=== PATIENT | male | born 1955 | race Asian ===

== ENCOUNTER 2025-02-07 16:07 | Inpatient (IN) | payer MEDICAID, OTHER ==
[~2025-02-07] VITALS: Ht 152.4 cm; Wt 48.2 kg
--- NOTE | 2025-02-07 16:37 | ED.PDOC ---
History of Present Illness HPI Comments 69-year-old male brought by paramedics because of abdominal pain which started yesterday. Abdominal pain is within nausea but no vomiting. He is also complaining of constipation. Patient does have a history of hypertension hypercholesterol prostate. Denies any other symptoms. Time Seen by MD: 16:08 Reviewed Notes: Nurses Notes, Medications, Allergies Allergies: Coded Allergies: NO KNOWN ALLERGIES (Unverified , 02/07/25) Information Source: Patient, Emergency Med Personnel Mode of Arrival: EMS Severity: Moderate Timing: Days Duration: Since onset Past Medical History PAST MEDICAL HISTORY: HTN Surgical History: Denies all surgeries Social History Smoker: Non-Smoker Alcohol: Denies ETOH Use Drugs: Denies Drug Use Constitutional: denies: chills, diaphoresis, fatigue, fever, malaise, sweats, weakness, others EENTM: denies: blurred vision, double vision, ear bleeding, ear discharge, ear drainage, ear pain, ear ringing, eye pain, eye redness, hearing loss, mouth pain, mouth swelling, nasal discharge, nose bleeding, nose congestion, nose pain, photophobia, tearing, throat pain, throat swelling, voice changes, others Respiratory: denies: cough, hemoptysis, orthopnea, SOB at rest, shortness of breath, SOB with excertion, stridor, wheezing, others Cardiovascular: denies: chest pain, dizzy spells, diaphoresis, Dyspnea on exertion, edema, irregular heart beat, left arm pain, lightheadedness, palpitations, PND, syncope, others Gastrointestinal: reports: abdominal pain, constipated; denies: abdomen distended, blood streaked bowels, diarrhea, dysphagia, difficulty swallowing, hematemesis, melena, nausea, poor appetite, poor fluid intake, rectal bleeding, rectal pain, vomiting, others Genitourinary: denies: burning, dysuria, flank pain, frequency, hematuria, incontinence, penile discharge, penile sore, pain, testicle pain, testicle swel ling, urgency, others Neurological: denies: dizziness, fainting, headache, left sided numbness, left sided weakness, numbness, paresthesia, pre-existing deficit, right sided numbness, right sided weakness, seizure, speech problems, tingling, tremors, weakness, others Musculoskeletal: denies: back pain, gout, joint pain, joint swelling, muscle pain, muscle stiffness, neck pain, others Integumetry: denies: bruises, change in color, change in hair/nails, dryness, laceration, lesions, lumps, rash, wounds, others Allergic/Immunocompromised: denies: Difficulty Healing, Frequent Infections, Hives, Itching, others Hematologic/Lymphatic: denies: anemia, blood clots, easy bleeding, easy bruising, swollen glands, others Endocrine: denies: excessive hunger, excessive sweating, excessive thirst, excessive urination, flushing, intolerance to cold, intolerance to heat, unexplained weight gain, unexplained weight loss, others Psychiatric: denies: anxiety, bipolar disorder, depression, hopeless, panic disorder, schizophrenia, sleepless, suicidal, others Physical Exam General Appearance: Moderate Distress HEENT: Normal ENT Inspection, Pharynx Normal, TMs Normal Neck: Full Range of Motion, Non-Tender, Normal, Normal Inspection Respiratory: Chest Non-Tender, Lungs Clear, No Accessory Muscle Use, No Respiratory Distress, Normal Breath Sounds Cardiovascular: No Edema, No JVD, No Murmur, No Gallop, Normal Peripheral Pulses, Regular Rate/Rhythm Breast Exam: Deferred Gastrointestinal: Distended Genitalia: Deferred Pelvic: Deferred Rectal: Deferred Extremities: No calf tenderness, Normal capillary refill, Normal inspection, Normal range of motion, Non-tender, No pedal edema Musculoskeletal : Apperance: Normal Neurologic: Alert, chief port director II-XII nml as Tested, No Motor Deficits, Normal Affect, Normal Mood, No Sensory Deficits Cerebellar Function: NOT DONE Reflexes: NOT DONE Skin: Dry, Normal Color, Warm Peripheral Pulses: 3+ Radial (R), 3+ Radial (L) Lymphatic: No Adenopathy Was a procedure done? Was a procedure done?: No Differential Dx Considerations may include: Colitis Electrolyte imbalance X-Ray, Labs, Meds, VS Vital Signs Date Time Temp Pulse Resp B/P (MAP) Pulse Ox O2 Delivery O2 Flow Rate FiO2 02/07/25 16:35 96.4 81 16 116/65 97 96.4 Lab Test 02/07/25 16:33 Range/Units White Blood Count 6.6 4.4-10.8 10^3/uL Red Blood Count 3.39 L 4.5-5.90 10^6/uL Hemoglobin 11.3 L 13.5-17.5 g/dL Hematocrit 32.8 L 41.0-53.0 % Mean Corpuscular Volume 97.0 80.0-100.0 fL Mean Corpuscular Hemoglobin 33.2 H 28.0-32.0 pg Mean Corpuscular Hemoglobin Concent 34.3 32.0-36.0 g/dL Red Cell Distribution Width 17.0 H 11.8-14.3 % Platelet Count 95 L 140-450 10^3/uL Mean Platelet Volume 9.2 6.9-10.8 fL Neutrophils (%) (Auto) 67.9 37.0-80.0 % Lymphocytes (%) (Auto) 16.0 10.0-50.0 % Monocytes (%) (Auto) 13.1 H 0.0-12.0 % Eosinophils (%) (Auto) 2.8 0.0-7.0 % Basophils (%) (Auto) 0.2 0.0-2.0 % Neutrophils # (Auto) 4.5 1.6-8.6 10 ^3/uL Lymphocytes # (Auto) 1.1 0.4-5.4 10 ^3/uL Monocytes # (Auto) 0.9 0-1.3 10 ^3/uL Eosinophils # (Auto) 0.2 0-0.8 10 ^3/uL Basophils # (Auto) 0 0-0.2 10 ^3/uL Nucleated Red Blood Cells 0.0 % Platelet Estimate Pending Sodium Level 138 136-145 mmol/L Potassium Level 4.1 3.5-5.1 mmol/L Chloride Level 106 98-107 mmol/L Carbon Dioxide Level 23 20-31 mmol/L Anion Gap 9 5-15 Blood Urea Nitrogen 26 H 9-23 mg/dL Creatinine 1.73 H 0.700-1.30 mg/dL Glomerular Filtration Rate Calc 42 >90 mL/min BUN/Creatinine Ratio 15.0 10.0-20.0 Serum Glucose 112 H 74-106 mg/dL Calcium Level 8.6 L 8.7-10.4 mg/dL Patient alert. Complaining of abdominal distention. Vitals stable. Answering questions. Establish intravenous access. Was given fluids. Explained to the family. Continue monitoring. Time of 1ST Reevaluation: 16:35 Reevaluation 1ST: Unchanged Patient Education/Counseling: Diagnosis, Treatment, Prognosis Family Education/Counseling: No Family Present SEPSIS Sepsis Screen Physician Orders Ct Ab Pel Wo Con-No Oral Or Iv (02/07/25 16:18) Complete Blood Count (02/07/25 16:08) Chest Portable (02/07/25 16:18) Urinalysis (02/07/25 16:08) Rbc Morphology (02/07/25 16:33) Vital Signs Date Time Temp Pulse Resp B/P (MAP) Pulse Ox O2 Delivery O2 Flow Rate FiO2 02/07/25 16:35 96.4 81 16 116/65 97 96.4 Laboratory Tests Test 02/07/25 16:33 White Blood Count 6.6 10^3/uL (4.4-10.8) Departure 1 Departure Time of Disposition: 16:36 Impression: Primary Impression: Acute abdominal pain Additional Impressions: Cirrhosis of liver Qualified Codes: K74.60 - Unspecified cirrhosis of liver; R18.8 - Other ascites Gallstones Disposition: ADMITTED INPATIENT Admit to: Med Surg Condition: Guarded Critical Care Note Critical Care Time?: No Stability Stability form required: No Heart Score Heart Score: Heart Score Response (Comments) Value History N/A 0 EKG N/A 0 Age N/A 0 Risk Factors N/A 0 Troponin N/A 0 Total 0 MERLE QUEEN MD Feb 07, 2025 16:37
[2025-02-07 16:58] LABS: Hematocrit 32.8 % (41.0-53.0); Hemoglobin 11.3 g/dL (13.5-17.5); Mean Corpuscular Hemoglobin 33.2 pg (28.0-32.0); Mean Corpuscular Volume 97.0 fL (80.0-100.0); Nucleated Red Blood Cells % 0.0 %
--- NOTE | 2025-02-07 17:07 | DVH ---
CHEST RADIOGRAPH Indication: sob Technique: XY CHEST PORTABLE COMPARISON: None FINDINGS: The cardiac silhouette is enlarged. The lungs demonstrate bilateral patchy airspace opacities. The pu lmonary vasculature is prominent. There is no pleural effusion. There is no pneumothorax. Aortic athe rosclerotic disease. IMPRESSION: Cardiomegaly with pulmonary vascular congestion and bilateral patchy airspace opacities.
[2025-02-07 17:09] LABS: Chloride 106 mmol/L (98-107); Potassium 4.1 mmol/L (3.5-5.1); Sodium 138 mmol/L (136-145)
[2025-02-07 17:10] LABS: Anion Gap 9 (5-15); Carbon Dioxide 23 mmol/L (20-31)
[2025-02-07 17:15] LABS: BUN/Creatinine Ratio 15.0 (10.0-20.0)
[2025-02-07 17:17] LABS: Blood Urea Nitrogen 26 mg/dL (9-23); Calcium 8.6 mg/dL (8.7-10.4); Glucose 112 mg/dL (74-106)
--- NOTE | 2025-02-07 17:26 | DVH ---
Indication: distended Technique: CT axial images of the abdomen and pelvis are obtained without contrast. Coronal and sagit basilia reformats were obtained. Radiation Dose Information: CTDI volume is 5.1 mGy. Dose-length product is 280 mGy*cm Comparison: FINDINGS: There is limited interpretation of the abdomen and pelvis without administration of intravenous contr ast. Lung bases demonstrate atelectasis. Adrenal glands unremarkable in shape. The spleen measures 11 cm AP. Pancreas unremarkable in shape. Cirrhotic morphology appearance of the liver. Possible large left hepatic lobe measuring 14.9 x 9.0 c m Cholelithiasis. Contracted gallbladder. Kidneys demonstrate no hydronephrosis or nephrolithiasis. Right renal cysts measuring up to 3.1 cm. Stomach partially distended. Small bowel loops are moderately distended. Moderate volume stool throughout the colon. No evidence for acute appendicitis. Abdominal aortic atherosclerotic disease. Bladder partially distended. Mesenteric edema. Small amount of ascites fluid. No inguinal lymphadenopathy. Moderate lumbar degenerative disc disease most pronounced at L5-S1. IMPRESSION: Limited evaluation without contrast. Cirrhotic morphology liver. Possible diffusely infiltrative left hepatic lobe mass measuring 14.9 x 9.0 cm. Recommend multiphasic MRI abdomen with and without contrast and correlation with alpha fetop rotein levels. Small amount of ascites fluid. Mesenteric edema. Cholelithiasis. Atherosclerotic disease. Other findings as described.
[2025-02-07 18:12] LABS: RBC Morphology Normal
[2025-02-08] MEDS: LACTULOSE 20Gm/30ML SOLN PO ONE (03:15)
[2025-02-08 05:00] VITALS: BP 122/62; PULSE 74; RESP 20; TEMP 98; O2SAT 97
--- NOTE | 2025-02-08 06:27 | DVHHPRES ---
History of Present Illness Resident Creating Document: NICK OCHOA RESIDENT History of Present Illness History of Present Illness (HPI): Varghese Lewis is a 69-year-old [place] speaking male with past medical history of hepatitis-B, hypertension, dyslipidemia presented with complaints of abdominal pain, fever, shortness of breath since 1 day. He also complains of weakness and tiredness. he rates the pain 10 on 10 in intensity, sharp, to continue as with no radiation, aggravating on coughing and talking with no alleviating factors. Communicated with the patient using seat scooper machine. Past Medical History (PMH): Hepatitis-B, hypertension, dyslipidemia Past Surgical History (PSH): No past history of surgeries Family history (FH): No relevant family history EtOH: Stopped using alcohol 10 years back Smoking /Vapin pack year smoking history Recreational Drugs: Denies recreational drug use Residence: Lives with son Home Medications: Reconcile home medications, son will bring the list tomorrow Allergies: No known allergies PCP: Dr. Awan Specialist relevant to admission: Nonrelevant Review of Systems Review of Systems General: patient denies fever, fatigue, weaknes, sweating, any recent changes in appetite and weight HEENT: No headaches, visiual changes, hearing loss, tinnitus, nasal congestion and discharge, and sore throat. Cardiovascular: Denies chest pain, palpitations, dyspnea on exertion, orthopnea, or claudication. Respiratory: No cough, and wheezing. Gastrointestinal: Complains of abdominal pain Genitourinary: No dysuria, hematuria, discharge, frequency, urgency, nocturia, incontinence, and urinary retention. Endocrine: No heat or cold intolerance, polydipsia, polyuria, and polyphagia. Neurological: No dizziness, extremity weakness and numbness, tremors, gait disturbance, seizures, and memory impairment. Psychiatric: Denies depression, anxiety,or insomnia. Musculoskeletal: Denies neck pain, stiffness and swelling, back pain, muscle weakness, joint pain, stiffness, swelling, or limited range of motion. Skin: No rashes, itching, skin lesion, changes in hair, nail, skin texture and breast. Hematologic/Lymphatic: Denies easy bruising, bleeding tendencies, or lymph node enlargement. Allergies: Coded Allergies: NO KNOWN ALLERGIES (Unverified , 02/07/25) Exam Vital Signs Vital Signs Date Time Temp Pulse Resp B/P (MAP) Pulse Ox O2 Delivery O2 Flow Rate FiO2 02/07/25 16:35 96.4 81 16 116/65 97 96.4 Exam General Appearance: Alert, Oriented X3, Cooperative, No acute distress HEENT: Atraumatic, PERRLA, EOMI, Mucous membrane moist/pink Respiratory: Clear to auscultation, Normal air movement Cardiovascular: Regular rate, Normal S1, Normal S2, No murmurs, no chest wall tenderness Abdominal: Diffuse abdominal tenderness present Extremities: No clubbing, No cyanosis, No edema, Normal pulses, No tenderness/swelling Skin: No rashes, No breakdown, No significant lesion Neuro: Normal gait, Normal speech, Strength at 5/5 X4 ext, Normal tone, Sensation intact, Cranial nerves 3-12 NL, Reflexes 2+ Psych/Mental Status: Mental status NL, Mood NL Labs/Xrays Labs Test 02/07/25 16:33 Range/Units White Blood Count 6.6 4.4-10.8 10^3/uL Red Blood Count 3.39 L 4.5-5.90 10^6/uL Hemoglobin 11.3 L 13.5-17.5 g/dL Hematocrit 32.8 L 41.0-53.0 % Mean Corpuscular Volume 97.0 80.0-100.0 fL Mean Corpuscular Hemoglobin 33.2 H 28.0-32.0 pg Mean Corpuscular Hemoglobin Concent 34.3 32.0-36.0 g/dL Red Cell Distribution Width 17.0 H 11.8-14.3 % Platelet Count 95 L 140-450 10^3/uL Mean Platelet Volume 9.2 6.9-10.8 fL Neutrophils (%) (Auto) 67.9 37.0-80.0 % Lymphocytes (%) (Auto) 16.0 10.0-50.0 % Monocytes (%) (Auto) 13.1 H 0.0-12.0 % Eosinophils (%) (Auto) 2.8 0.0-7.0 % Basophils (%) (Auto) 0.2 0.0-2.0 % Neutrophils # (Auto) 4.5 1.6-8.6 10 ^3/uL Lymphocytes # (Auto) 1.1 0.4-5.4 10 ^3/uL Monocytes # (Auto) 0.9 0-1.3 10 ^3/uL Eosinophils # (Auto) 0.2 0-0.8 10 ^3/uL Basophils # (Auto) 0 0-0.2 10 ^3/uL Nucleated Red Blood Cells 0.0 % Platelet Estimate Decreased Large Platelets Few Red Blood Cell Morphology Normal Sodium Level 138 136-145 mmol/L Potassium Level 4.1 3.5-5.1 mmol/L Chloride Level 106 98-107 mmol/L Carbon Dioxide Level 23 20-31 mmol/L Anion Gap 9 5-15 Blood Urea Nitrogen 26 H 9-23 mg/dL Creatinine 1.73 H 0.700-1.30 mg/dL Glomerular Filtration Rate Calc 42 >90 mL/min BUN/Creatinine Ratio 15.0 10.0-20.0 Serum Glucose 112 H 74-106 mg/dL Calcium Level 8.6 L 8.7-10.4 mg/dL SEPSIS Sepsis Screen Date sepsis recognized/suspect: Feb 07, 2025 Time Sepsis recognized/suspect: 1624 Recent Procedure: No On Antibiotic Therapy: No Respiratory Rate >20: No Heart Rate >90: No Temp<36 C (96.8 F) or >38.3 C: No SBP <90 or MAP <65 mmHG: No New Acute Mental Status Change: No Is the patient on CPAP, BIPAP,: No Physician Orders Ct Ab Pel Wo Con-No Oral Or Iv (02/07/25 16:18) Chest Portable (02/07/25 16:18) Urinalysis (02/07/25 16:08) Admit (02/07/25 22:47) Allergies (02/07/25 22:47) Code Status (02/07/25 22:47) 2 Gm Sodium Diet (02/08/25 Breakfast) Ondansetron Hcl (Zofran) (02/07/25 23:00) Vital Signs Date Time Temp Pulse Resp B/P (MAP) Pulse Ox O2 Delivery O2 Flow Rate FiO2 02/07/25 16:35 96.4 81 16 116/65 97 96.4 Laboratory Tests Test 02/07/25 16:33 White Blood Count 6.6 10^3/uL (4.4-10.8) Medications Medications Dose Ordered Sig/Alpa Route Start Time Stop Time Status Last Admin Dose Admin Ceftriaxone Sodium 50 ml @ 100 mls/hr ONCE ONCE IV 02/07/25 17:45 02/07/25 18:14 DC 02/07/25 20:22 100 MLS/HR Metronidazole 100 ml @ 100 mls/hr ONCE ONCE IV 02/07/25 17:45 02/07/25 18:44 DC 02/07/25 20:27 100 MLS/HR Assessment/Plan Assessment/Plan Assessment and plan # 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 Barriers to discharge: Medical diagnosis and management in progress. Patient lives with family. Independent for ADL. PCP: Dr. Awan Specialist Relevant To Admission: Nonrelevant Communicated with the son directly and with the patient using seat scooper machine. Case discussed with Dr. Reynsoo. Code Status: Full Code. Complex patient care discussion needed. Spend total 39 minutes for bedside assessment, case discussion and management. Plan discussed with: Patient, Son My Orders Orders - NICK OCHOA RESIDENT Procedure Category Date Status Time Admit ADMIT 02/07/25 Verified 22:47 Allergies GLORIA 02/07/25 Verified 22:47 Code Status CODE 02/07/25 Verified 22:47 2 Gm Sodium Diet DIET 02/08/25 Verified Breakfast Ondansetron Hcl PHA 02/07/25 Verified (Zofran) 23:00 Date of Service: Feb 07, 2025 Billing Provider: MORALES REYNOSO MD Common Visit Codes: [id number] INP/OBS CARE (HIGH) Secondary Visit Codes: [id number] CARE PLAN 30 MINUTES NICK OCHOA RESIDENT Feb 07, 2025 22:49
--- NOTE | 2025-02-08 08:15 | DVH ---
INDICATION: ascites TECHNIQUE: Multiple real-time sonographic images of the abdomen were obtained. COMPARISON: None FINDINGS: Hepatic cirrhosis. Multiple echogenic masses concerning for HCC measuring up to 6 x 6 x 4. 7 cm. The gallbladder wall measures 0.9 cm and is thickened. Gallstones are present. Small volume ascites. Common bile duct measures 4 mm. The right kidney measures 10cm. No hydronephrosis. 3 cm right renal cyst . The pancreas is not well visualized due to obscuration from bowel gas. The visualized portions of the IVC and aorta are grossly unremarkable. IMPRESSION: Multiple hepatic masses are identified measuring up to 6 cm concerning for HCC. Small volume ascites.
[2025-02-08 08:19] LABS: Hematocrit 32.6 % (41.0-53.0); Hemoglobin 11.3 g/dL (13.5-17.5); Mean Corpuscular Hemoglobin 33.4 pg (28.0-32.0); Mean Corpuscular Volume 96.1 fL (80.0-100.0); Nucleated Red Blood Cells % 0.1 %
[2025-02-08 08:22] LABS: INR 1.09 (0.9-1.15); Partial Thromboplastin Time 38.4 SEC (24.5-34.5); Prothrombin Time 11.5 sec (9.3-11.8)
[2025-02-08 08:23] LABS: Anion Gap 11 (5-15); BUN/Creatinine Ratio 16.7 (10.0-20.0); Blood Urea Nitrogen 22 mg/dL (9-23); Chloride 106 mmol/L (98-107); Glucose 98 mg/dL (74-106); Potassium 4.4 mmol/L (3.5-5.1); Sodium 137 mmol/L (136-145); Total Protein 7.6 g/dL (5.7-8.2)
[2025-02-08 08:26] LABS: Alanine Aminotransferase 499 U/L (7-40); Albumin 3.2 g/dL (3.2-4.8); Alkaline Phosphatase 129 U/L (46-116); Bilirubin, Total 1.7 mg/dL (0.2-1.0); Calcium 8.6 mg/dL (8.7-10.4); Carbon Dioxide 20 mmol/L (20-31)
[2025-02-08] MEDS: LACTULOSE 20Gm/30ML SOLN PO SCH (09:58)
[2025-02-08 10:00] VITALS: BP 110/58; PULSE 74; RESP 17; TEMP 98.1; O2SAT 96
--- NOTE | 2025-02-08 11:33 | DVHPN2 ---
Subjective The patient is seen and examined at bedside. The patient complained of ascites and abdominal pain. Son at bedside. Reviewed: Care Plan, H&P, Medications, Previous Orders Changes from previous H/P or p: No Changes Objective Vitals Vital Signs Date Time Temp Pulse Resp B/P (MAP) Pulse Ox O2 Delivery O2 Flow Rate FiO2 02/08/25 10:00 98.1 74 17 110/58 (75) 96 98.1 02/08/25 03:05 Room Air General Appearance: Alert, Oriented X3, Cooperative, No acute distress HEENT: Atraumatic, PERRLA, EOMI Neck: Supple Cardiovascular: Regular rate, Normal S1, Normal S2, No murmurs, Gallops, Rubs Abdomen: Normal bowel sounds, Other (possible ascites) Neuro: Cranial nerves 3-12 NL Psych/Mental Status: Other Medications Current Medications Medications Dose Ordered Sig/Alpa Route Start Time Stop Time Status Last Admin Dose Admin Ondansetron HCl 4 mg Q4HP PRN IV 02/07/25 23:00 Acetaminophen 650 mg Q6HP PRN PO 02/07/25 23:00 Lactulose 30 ml BID PO 02/08/25 10:00 02/08/25 09:58 30 ML Laboratory Results Laboratory Tests 02/08/25 07:28 Chemistry Test 02/07/25 16:33 02/08/25 07:28 Calcium Level 8.6 mg/dL (8.7-10.4) L 8.6 mg/dL (8.7-10.4) L Albumin 3.2 g/dL (3.2-4.8) Total Protein 7.6 g/dL (5.7-8.2) Coagulation Test 02/08/25 07:28 Prothrombin Time 11.5 sec (9.3-11.8) Prothrombin Time INR 1.09 (0.9-1.15) Activated Partial Thromboplast Time 38.4 SEC (24.5-34.5) H LFT Test 02/08/25 07:28 Alanine Aminotransferase (ALT) 499 U/L (7-40) H Alkaline Phosphatase 129 U/L (46-116) H Aspartate Amino Transferase (AST) 321 U/L (13-40) H Total Bilirubin 1.7 mg/dL (0.2-1.0) H Labs and/or images reviewed: Labs reviewed by me Assessment/Plan Assessment/Plan Assessment and plan # 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 Discussed with the patient and son regarding to the mass in the liver. I will wait for GI specialist input. We will biopsy the lesion. This medical document was created using an electronic medical record system with [employer] computerized dictation system. Although this document has been carefully reviewed, there may still be some phonetic and typographical errors. These areas are purely typographical due to imperfections of the software programs, and do not reflect any compromise in the patient's medical care. Plan discussed with: Patient, Son Date of Service: Feb 08, 2025 Billing Provider: ALIZE OROZCO MD Common Visit Codes: [id number] INP/OBS CARE(HIGH) ALIZE OROZCO MD Feb 08, 2025 11:33
[2025-02-08 12:46] VITALS: BP 110/55; PULSE 78; RESP 16; TEMP 98; O2SAT 96
[2025-02-08 17:00] VITALS: BP 111/75; PULSE 77; RESP 17; TEMP 98.6; O2SAT 97
[2025-02-08 17:36] LABS: COVID19 ANTIGEN SOFIA FIA NEGATIVE (NEGATIVE)
[2025-02-08 21:00] VITALS: BP 116/68; PULSE 75; RESP 16; TEMP 99.1; O2SAT 96
[2025-02-08] MEDS: ACETAMINOPHEN 325 MG TAB PO PRN (21:35)
[2025-02-09] VITALS (8 sets, daily range): BP systolic 102–134; BP diastolic 60–76; PULSE 62–76; RESP 16–18; TEMP 97.5–99.5; O2SAT 94–98
[2025-02-09 06:28] LABS: Hematocrit 32.5 % (41.0-53.0); Hemoglobin 11.3 g/dL (13.5-17.5); Mean Corpuscular Hemoglobin 33.5 pg (28.0-32.0); Mean Corpuscular Volume 96.7 fL (80.0-100.0); Nucleated Red Blood Cells % 0.2 %
[2025-02-09 06:29] LABS: Anion Gap 11 (5-15); Carbon Dioxide 21 mmol/L (20-31); Potassium 4.2 mmol/L (3.5-5.1); Sodium 140 mmol/L (136-145)
[2025-02-09 06:30] LABS: Calcium 8.7 mg/dL (8.7-10.4); Chloride 108 mmol/L (98-107)
[2025-02-09 06:35] LABS: BUN/Creatinine Ratio 17.5 (10.0-20.0); Blood Urea Nitrogen 21 mg/dL (9-23); Glucose 90 mg/dL (74-106)
[2025-02-09] MEDS: ONDANSETRON HCL 4 MG/2 ML VIAL IV PRN (15:16)
--- NOTE | 2025-02-09 23:36 | DVHPN2 ---
Subjective The patient is seen and examined at bedside. The patient complained of ascites and abdominal pain. Reviewed: Care Plan, H&P, Medications, Previous Orders Changes from previous H/P or p: No Changes Objective Vitals Vital Signs Date Time Temp Pulse Resp B/P (MAP) Pulse Ox O2 Delivery O2 Flow Rate FiO2 02/09/25 21:00 98.0 73 16 108/61 (77) 95 98.0 02/09/25 08:00 Room Air* 0 99 21 Intake/Output Intake and Output 02/09/25 07:00 Intake Total 640 ml Balance 640 ml Intake Oral 640 ml # Voids 2 General Appearance: Alert, Oriented X3, Cooperative, No acute distress HEENT: Atraumatic, PERRLA, EOMI Neck: Supple Cardiovascular: Regular rate, Normal S1, Normal S2, No murmurs, Gallops, Rubs Abdomen: Normal bowel sounds, Other (possible ascites) Neuro: Cranial nerves 3-12 NL Psych/Mental Status: Other Medications Current Medications Medications Dose Ordered Sig/Alpa Route Start Time Stop Time Status Last Admin Dose Admin Ondansetron HCl 4 mg Q4HP PRN IV 02/07/25 23:00 02/09/25 15:16 4 MG Acetaminophen 650 mg Q6HP PRN PO 02/07/25 23:00 02/08/25 21:35 650 MG Lactulose 30 ml BID PO 02/08/25 10:00 02/09/25 21:47 30 ML Laboratory Results Laboratory Tests 02/09/25 05:44 Chemistry Test 02/09/25 05:44 Calcium Level 8.7 mg/dL (8.7-10.4) Labs and/or images reviewed: Labs reviewed by me Assessment/Plan Assessment/Plan Assessment and plan # 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 Waiting for GI specialist to see the patient. Will continue pain meds will Dw son check alpha feto protein. This medical document was created using an electronic medical record system with [employer] computerized dictation system. Although this document has been carefully reviewed, there may still be some phonetic and typographical errors. These areas are purely typographical due to imperfections of the software programs, and do not reflect any compromise in the patient's medical care. Plan discussed with: Patient My Orders Orders - ALIZE OROZCO MD Procedure Category Date Status Time Complete Blood Count LAB 02/10/25 Verified 05:00 Complete Blood Count LAB 02/11/25 Verified 05:00 Complete Blood Count LAB 02/12/25 Verified 05:00 Complete Blood Count LAB 02/13/25 Verified 05:00 Basic Metabolic Panel LAB 02/10/25 Verified 05:00 Basic Metabolic Panel LAB 02/11/25 Verified 05:00 Basic Metabolic Panel LAB 02/12/25 Verified 05:00 Basic Metabolic Panel LAB 02/13/25 Verified 05:00 * Gi Dvh Scheme Technician CONS 02/09/25 Transmitted 12:37 Afp Serum Tumor Marker LAB 02/09/25 In Process 12:38 Date of Service: Feb 09, 2025 Billing Provider: ALIZE OROZCO MD Common Visit Codes: [id number] INP/OBS CARE(HIGH) ALIZE OROZCO MD Feb 09, 2025 23:36
[2025-02-10] VITALS (7 sets, daily range): BP systolic 120–139; BP diastolic 70–79; PULSE 66–76; RESP 16–18; TEMP 97.6–97.8; O2SAT 94–98
[2025-02-10 06:36] LABS: Hematocrit 31.8 % (41.0-53.0); Hemoglobin 11.0 g/dL (13.5-17.5); Mean Corpuscular Hemoglobin 33.2 pg (28.0-32.0); Mean Corpuscular Volume 96.3 fL (80.0-100.0); Nucleated Red Blood Cells % 0.0 %
[2025-02-10 06:54] LABS: Anion Gap 11 (5-15); Chloride 106 mmol/L (98-107); Potassium 4.3 mmol/L (3.5-5.1); Sodium 136 mmol/L (136-145)
[2025-02-10 06:55] LABS: Calcium 8.9 mg/dL (8.7-10.4); Carbon Dioxide 19 mmol/L (20-31)
[2025-02-10 07:00] LABS: BUN/Creatinine Ratio 18.3 (10.0-20.0); Blood Urea Nitrogen 21 mg/dL (9-23); Glucose 86 mg/dL (74-106)
--- NOTE | 2025-02-10 12:16 | DVHPN2 ---
Subjective The patient is seen and examined at bedside. The patient complained of ascites and abdominal pain. Pain is not controlled. Reviewed: Care Plan, H&P, Medications, Previous Orders Changes from previous H/P or p: No Changes Objective Vitals Vital Signs Date Time Temp Pulse Resp B/P (MAP) Pulse Ox O2 Delivery O2 Flow Rate FiO2 02/10/25 08:30 97.8 74 17 120/72 (88) 96 97.8 02/10/25 08:00 Room Air* 0 99 21 Intake/Output Intake and Output 02/10/25 07:00 Intake Total 1360 ml Balance 1360 ml Intake Oral 1360 ml # Voids 3 General Appearance: Alert, Oriented X3, Cooperative, No acute distress HEENT: Atraumatic, PERRLA, EOMI Neck: Supple Cardiovascular: Regular rate, Normal S1, Normal S2, No murmurs, Gallops, Rubs Abdomen: Normal bowel sounds, Other (possible ascites) Neuro: Cranial nerves 3-12 NL Psych/Mental Status: Other Medications Current Medications Medications Dose Ordered Sig/Alpa Route Start Time Stop Time Status Last Admin Dose Admin Ondansetron HCl 4 mg Q4HP PRN IV 02/07/25 23:00 02/09/25 15:16 4 MG Acetaminophen 650 mg Q6HP PRN PO 02/07/25 23:00 02/10/25 10:25 650 MG Lactulose 30 ml BID PO 02/08/25 10:00 02/10/25 10:25 30 ML Morphine Sulfate 1 mg Q4HP PRN IV 02/10/25 12:15 UNV Acetaminophen/ Hydrocodone Bitart 1 tab Q4HPRN PRN PO 02/10/25 12:15 UNV Laboratory Results Laboratory Tests 02/10/25 05:37 Chemistry Test 02/10/25 05:37 Calcium Level 8.9 mg/dL (8.7-10.4) Labs and/or images reviewed: Labs reviewed by me Assessment/Plan Assessment/Plan Assessment and plan # 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 Waiting for GI specialist to see the patient. Will continue pain meds tonny feto protein level is elevated. Will possible need biopsy. Waiting for GI input. This medical document was created using an electronic medical record system with [employer] computerized dictation system. Although this document has been carefully reviewed, there may still be some phonetic and typographical errors. These areas are purely typographical due to imperfections of the software programs, and do not reflect any compromise in the patient's medical care. Plan discussed with: Patient My Orders Orders - ALIZE OROZCO MD Procedure Category Date Status Time * Gi D[facility] [employer] Specialist CONS 02/09/25 Transmitted 12:37 Morphine Sulfate PHA 02/10/25 Logged Injection 12:15 Hydrocodone-Acet PHA 02/10/25 Logged 5/325mg Tab (Grants 12:15 Date of Service: Feb 10, 2025 Billing Provider: ALIZE OROZCO MD Common Visit Codes: [id number] INP/OBS CARE(HIGH) ALIZE OROZCO MD Feb 10, 2025 12:16
[2025-02-10] MEDS: HYDROcodone-ACET 5/325MG TAB PO PRN (14:01)
[2025-02-11 05:00] VITALS: BP 109/65; PULSE 64; RESP 16; TEMP 97.8; O2SAT 95
[2025-02-11 08:00] VITALS: RESP 18
[2025-02-11 08:10] LABS: Hematocrit 32.6 % (41.0-53.0); Hemoglobin 11.2 g/dL (13.5-17.5); Mean Corpuscular Hemoglobin 32.9 pg (28.0-32.0); Mean Corpuscular Volume 96.3 fL (80.0-100.0); Nucleated Red Blood Cells % 0.1 %
[2025-02-11 08:21] LABS: Anion Gap 10 (5-15); Carbon Dioxide 20 mmol/L (20-31); Chloride 106 mmol/L (98-107); Potassium 4.6 mmol/L (3.5-5.1); Sodium 136 mmol/L (136-145)
[2025-02-11 08:22] LABS: Calcium 8.8 mg/dL (8.7-10.4)
[2025-02-11 08:27] LABS: BUN/Creatinine Ratio 20.0 (10.0-20.0); Blood Urea Nitrogen 21 mg/dL (9-23); Glucose 80 mg/dL (74-106)
[2025-02-11 09:00] VITALS: BP 127/72; PULSE 63; RESP 20; TEMP 97; O2SAT 98
[2025-02-11 13:00] VITALS: BP 121/86; PULSE 78; RESP 18; TEMP 98.1; O2SAT 95
--- NOTE | 2025-02-11 15:00 | DVHPN2 ---
Subjective The patient is seen and examined at bedside. The patient complained of ascites and abdominal pain. Pain is not controlled. Reviewed: Care Plan, H&P, Medications, Previous Orders Changes from previous H/P or p: No Changes Objective Vitals Vital Signs Date Time Temp Pulse Resp B/P (MAP) Pulse Ox O2 Delivery O2 Flow Rate FiO2 02/11/25 13:00 98.1 78 18 121/86 (98) 95 98.1 02/11/25 08:00 Room Air* 0 99 21 Intake/Output Intake and Output 02/11/25 07:00 Intake Total 1320 ml Balance 1320 ml Intake Oral 1320 ml # Voids 6 General Appearance: Alert, Oriented X3, Cooperative, No acute distress HEENT: Atraumatic, PERRLA, EOMI Neck: Supple Cardiovascular: Regular rate, Normal S1, Normal S2, No murmurs, Gallops, Rubs Abdomen: Normal bowel sounds, Other (possible ascites) Neuro: Cranial nerves 3-12 NL Psych/Mental Status: Other Medications Current Medications Medications Dose Ordered Sig/Alpa Route Start Time Stop Time Status Last Admin Dose Admin Ondansetron HCl 4 mg Q4HP PRN IV 02/07/25 23:00 02/09/25 15:16 4 MG Acetaminophen 650 mg Q6HP PRN PO 02/07/25 23:00 02/10/25 10:25 650 MG Lactulose 30 ml BID PO 02/08/25 10:00 02/11/25 11:36 30 ML Morphine Sulfate 1 mg Q4HP PRN IV 02/10/25 12:15 Acetaminophen/ Hydrocodone Bitart 1 tab Q4HPRN PRN PO 02/10/25 12:15 02/11/25 11:36 1 TAB Laboratory Results Laboratory Tests 02/11/25 07:04 Chemistry Test 02/11/25 07:04 Calcium Level 8.8 mg/dL (8.7-10.4) Assessment/Plan Assessment/Plan Assessment and plan # 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 Waiting for GI specialist to see the patient. Will continue pain meds tonny feto protein level is elevated. Still waiting for GI specialist to see patient. WIll order IR to biopsy liver lesion This medical document was created using an electronic medical record system with [employer] computerized dictation system. Although this document has been carefully reviewed, there may still be some phonetic and typographical errors. These areas are purely typographical due to imperfections of the software programs, and do not reflect any compromise in the patient's medical care. Plan discussed with: Patient Date of Service: Feb 11, 2025 Billing Provider: ALIZE OROZCO MD Common Visit Codes: [id number] INP/OBS CARE(HIGH) ALIZE OROZCO MD Feb 11, 2025 15:00
[2025-02-11 17:00] VITALS: BP 111/63; PULSE 61; RESP 20; TEMP 97.8; O2SAT 96
[2025-02-11 21:00] VITALS: BP 114/64; PULSE 67; RESP 18; TEMP 97.7; O2SAT 95
[2025-02-12 01:00] VITALS: BP 122/68; PULSE 65; RESP 18; TEMP 97.4; O2SAT 96
[2025-02-12 05:00] VITALS: BP 105/60; PULSE 59; RESP 18; TEMP 97.7; O2SAT 96
[2025-02-12 06:44] LABS: Hematocrit 31.9 % (41.0-53.0); Hemoglobin 11.0 g/dL (13.5-17.5); Mean Corpuscular Hemoglobin 33.2 pg (28.0-32.0); Mean Corpuscular Volume 96.3 fL (80.0-100.0); Nucleated Red Blood Cells % 0.0 %
[2025-02-12 06:49] LABS: Chloride 105 mmol/L (98-107); Potassium 4.6 mmol/L (3.5-5.1); Sodium 136 mmol/L (136-145)
[2025-02-12 06:50] LABS: Anion Gap 11 (5-15); Calcium 9.0 mg/dL (8.7-10.4); Carbon Dioxide 20 mmol/L (20-31)
[2025-02-12 06:55] LABS: Glucose 89 mg/dL (74-106)
[2025-02-12 06:56] LABS: BUN/Creatinine Ratio 19.6 (10.0-20.0); Blood Urea Nitrogen 21 mg/dL (9-23)
[2025-02-12 09:00] VITALS: BP 124/54; PULSE 58; RESP 20; TEMP 97.2; O2SAT 94
--- NOTE | 2025-02-12 10:27 | DVHINCON2 ---
Date of service: Feb 12, 2025 Referring Physician Chanda Reason for Consultation Cirrhosis Liver mass History of Present Illness The patient is a 61-year-old male past medical history significant for hepatitis-B, hyperlipidemia, hypertension admitted with abdominal pain, found to have ascites, abdominal distention, and multiple liver masses on ultrasound and a liver mass on CT scan. MRI was recommended. Patient has mildly elevated alpha fetoprotein. GI consultation was obtained for evaluation. Past Medical History Past medical history as above Past Surgical History No prior GI surgeries Family History: Patient reports no known family medical history. Family History No gastrointestinal diseases or malignancies Social History Prior tobacco use No alcohol or recreational drug use Allergies: Coded Allergies: NO KNOWN ALLERGIES (Unverified , 02/07/25) Review of Systems 12 point review of systems as per HPI Vital Signs Vital Signs Date Time Temp Pulse Resp B/P (MAP) Pulse Ox O2 Delivery O2 Flow Rate FiO2 02/12/25 08:00 Room Air* 0 99 21 02/12/25 05:00 97.7 59 18 105/60 (75) 96 97.7 Physical Exam General: Cachectic appearing male HEENT: NC/AT EOMI PERRLA O/P clear, no JVD or cervical lymphadenopathy, no scleral icterus Heart: Regular rate and rhythm, no murmurs rubs or gallops Lungs: Clear to auscultation bilaterally, no wheezes rales or rhonchi Abdomen: Soft, distended, moderate tenderness to palpation Extremity: No clubbing cyanosis or edema, no rashes or bruises Neuro: Cranial nerves 2-12 grossly intact, moves all four extremities, no asterixis Labs/Diagnostic Data Labs Test 02/12/25 06:20 02/09/25 13:37 02/08/25 16:15 02/08/25 07:28 Range/Units White Blood Count 4.6 4.4-10.8 10^3/uL Red Blood Count 3.31 L 4.5-5.90 10^6/uL Hemoglobin 11.0 L 13.5-17.5 g/dL Hematocrit 31.9 L 41.0-53.0 % Mean Corpuscular Volume 96.3 80.0-100.0 fL Mean Corpuscular Hemoglobin 33.2 H 28.0-32.0 pg Mean Corpuscular Hemoglobin Concent 34.5 32.0-36.0 g/dL Red Cell Distribution Width 16.7 H 11.8-14.3 % Platelet Count 152 140-450 10^3/uL Mean Platelet Volume 9.1 6.9-10.8 fL Neutrophils (%) (Auto) 65.6 37.0-80.0 % Lymphocytes (%) (Auto) 20.3 10.0-50.0 % Monocytes (%) (Auto) 8.9 0.0-12.0 % Eosinophils (%) (Auto) 4.7 0.0-7.0 % Basophils (%) (Auto) 0.5 0.0-2.0 % Neutrophils # (Auto) 3.0 1.6-8.6 10 ^3/uL Lymphocytes # (Auto) 0.9 0.4-5.4 10 ^3/uL Monocytes # (Auto) 0.4 0-1.3 10 ^3/uL Eosinophils # (Auto) 0.2 0-0.8 10 ^3/uL Basophils # (Auto) 0 0-0.2 10 ^3/uL Nucleated Red Blood Cells 0.0 % Sodium Level 136 136-145 mmol/L Potassium Level 4.6 3.5-5.1 mmol/L Chloride Level 105 98-107 mmol/L Carbon Dioxide Level 20 20-31 mmol/L Anion Gap 11 5-15 Blood Urea Nitrogen 21 9-23 mg/dL Creatinine 1.07 0.700-1.30 mg/dL Glomerular Filtration Rate Calc 76 >90 mL/min BUN/Creatinine Ratio 19.6 10.0-20.0 Serum Glucose 89 74-106 mg/dL Calcium Level 9.0 8.7-10.4 mg/dL Tumor Marker Alpha Fetoprotein 15.4 H 0.0-8.4 ng/mL SARS-CoV-2 Antigen (Rapid) Negative NEGATIVE Prothrombin Time 11.5 9.3-11.8 sec Prothrombin Time INR 1.09 0.9-1.15 Activated Partial Thromboplast Time 38.4 H 24.5-34.5 SEC Total Bilirubin 1.7 H 0.2-1.0 mg/dL Aspartate Amino Transferase (AST) 321 H 13-40 U/L Alanine Aminotransferase (ALT) 499 H 7-40 U/L Alkaline Phosphatase 129 H 46-116 U/L Ammonia 20 11-32 umol/L Total Protein 7.6 5.7-8.2 g/dL Albumin 3.2 3.2-4.8 g/dL Carcinoembryonic Antigen 0.80 <=5.0 ng/mL Test 02/07/25 16:33 Range/Units Platelet Estimate Decreased Large Platelets Few Red Blood Cell Morphology Normal IMPRESSION: Limited evaluation without contrast. Cirrhotic morphology liver. Possible diffusely infiltrative left hepatic lobe mass measuring 14.9 x 9.0 cm. Recommend multiphasic MRI abdomen with and without contrast and correlation with alpha fetoprotein levels. Small amount of ascites fluid. Mesenteric edema. Cholelithiasis. Atherosclerotic disease. Assessment 1. Hepatitis-B, not sure if the patient is being treated or has been treated in the past given communication barrier. 2. Cirrhotic morphology of liver on imaging 3. Likely hepatocellular carcinoma 4. Mild ascites 5. Transaminitis 6. Abdominal pain 7. Cholelithiasis Problems(with codes): (1) Cirrhosis of liver (2) Gallstones (3) Acute abdominal pain Plan/Recommendation 1. We will check hepatitis-B DNA levels 2. Oncology consultation 3. Patient will need CT-guided biopsy of the liver masses 4. Pain control 5. Further workup as indicated 6. Surgical consultation for cholelithiasis, question common bile duct obstr uction, patient may need MRI/MRCP for evaluation for common bile duct stone and will need MRI with contrast for liver mass 7. I will be signing off and the GI team we will follow Plan discussed with: Patient WALTER DOSS MD Feb 12, 2025 10:27
--- NOTE | 2025-02-12 12:31 | DVHPN2 ---
Subjective The patient is seen and examined at bedside. The patient complained of ascites and abdominal pain. Pain is not controlled. Reviewed: Care Plan, H&P, Medications, Previous Orders Changes from previous H/P or p: No Changes Objective Vitals Vital Signs Date Time Temp Pulse Resp B/P (MAP) Pulse Ox O2 Delivery O2 Flow Rate FiO2 02/12/25 09:00 97.2 58 20 124/54 (77) 94 97.2 02/12/25 08:00 Room Air* 0 99 21 Intake/Output Intake and Output 02/12/25 07:00 Intake Total 1748 ml Output Total 3 ml Balance 1745 ml Intake Oral 1748 ml Output Urine Total 3 ml # Voids 3 General Appearance: Alert, Oriented X3, Cooperative, No acute distress HEENT: Atraumatic, PERRLA, EOMI Neck: Supple Cardiovascular: Regular rate, Normal S1, Normal S2, No murmurs, Gallops, Rubs Abdomen: Normal bowel sounds, Other (possible ascites) Neuro: Cranial nerves 3-12 NL Psych/Mental Status: Other Medications Current Medications Medications Dose Ordered Sig/Alpa Route Start Time Stop Time Status Last Admin Dose Admin Ondansetron HCl 4 mg Q4HP PRN IV 02/07/25 23:00 02/09/25 15:16 4 MG Acetaminophen 650 mg Q6HP PRN PO 02/07/25 23:00 02/10/25 10:25 650 MG Lactulose 30 ml BID PO 02/08/25 10:00 02/12/25 10:02 30 ML Morphine Sulfate 1 mg Q4HP PRN IV 02/10/25 12:15 Acetaminophen/ Hydrocodone Bitart 1 tab Q4HPRN PRN PO 02/10/25 12:15 02/12/25 06:35 1 TAB Laboratory Results Laboratory Tests 02/12/25 06:20 Chemistry Test 02/12/25 06:20 Calcium Level 9.0 mg/dL (8.7-10.4) Labs and/or images reviewed: Labs reviewed by me Assessment/Plan Assessment/Plan Assessment and plan # 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 Will continue pain meds tonny feto protein level is elevated. Still waiting for GI specialist to see patient. Waiting for interventional radiologists to biopsy the liver lesion. Discussed with Dr. Cochran, GI specialist on-call. Recommend follow up with Heme- Onc as outpatient This medical document was created using an electronic medical record system with [employer] computerized dictation system. Although this document has been carefully reviewed, there may still be some phonetic and typographical errors. These areas are purely typographical due to imperfections of the software programs, and do not reflect any compromise in the patient's medical care. Plan discussed with: Patient My Orders Orders - ALIZE OROZCO MD Procedure Category Date Status Time * Radiologist Consult CONS 02/11/25 Transmitted 15:00 Date of Service: Feb 13, 2025 Billing Provider: ALIZE OROZCO MD Common Visit Codes: [id number] INP/OBS CARE(HIGH) ALIZE OROZCO MD Feb 12, 2025 12:31
[2025-02-12 12:49] VITALS: BP 116/63; PULSE 61; RESP 20; TEMP 97.2; O2SAT 96
[2025-02-12 16:54] VITALS: BP 116/66; PULSE 70; RESP 20; TEMP 97.6; O2SAT 96
[2025-02-12 21:00] VITALS: BP 125/62; PULSE 70; RESP 20; TEMP 99.2; O2SAT 96
[2025-02-13] VITALS (7 sets, daily range): BP systolic 108–135; BP diastolic 51–70; PULSE 61–85; RESP 16–18; TEMP 97–98.5; O2SAT 94–98
[2025-02-13 07:08] LABS: Hematocrit 34.1 % (41.0-53.0); Hemoglobin 11.8 g/dL (13.5-17.5); Mean Corpuscular Hemoglobin 33.6 pg (28.0-32.0); Mean Corpuscular Volume 97.1 fL (80.0-100.0); Nucleated Red Blood Cells % 0.0 %
[2025-02-13 07:21] LABS: Anion Gap 10 (5-15); Carbon Dioxide 23 mmol/L (20-31); Chloride 106 mmol/L (98-107); Potassium 3.9 mmol/L (3.5-5.1); Sodium 139 mmol/L (136-145)
[2025-02-13 07:22] LABS: Calcium 9.2 mg/dL (8.7-10.4)
[2025-02-13 07:27] LABS: BUN/Creatinine Ratio 16.4 (10.0-20.0); Blood Urea Nitrogen 19 mg/dL (9-23); Glucose 86 mg/dL (74-106)
[2025-02-13] MEDS: IOHEXOL 300 MG/ML 100ML BOTTLE IJ ONE (14:30)
--- NOTE | 2025-02-13 14:35 | DVHPN2 ---
Progress Note Date Seen: Feb 13, 2025 Resident Creating Document: DALTON BIANCHI RESIDENT Medical Necessity Reason Pt with a Central, PICC or Fol: No Subjective Review of Systems Patient seen and examined at bedside Denies any nausea or vomiting Last bowel movement yesterday Scheduled to undergo CT abdomen with contrast today, imaging guided CT biopsy of the liver scheduled for tomorrow Objective vital signs Vital Sign Date Time Temp Pulse Resp B/P (MAP) Pulse Ox O2 Delivery O2 Flow Rate FiO2 02/13/25 12:56 98.5 75 18 114/65 (81) 94 98.5 02/13/25 08:00 Room Air* 0 21 Total Intake and Output 02/12/25 02/12/25 02/13/25 15:00 23:00 07:00 Intake Total 230 ml 600 ml 150 ml Output Total 2000 ml Balance 230 ml 600 ml -1850 ml medications Current Medications Medications Dose Ordered Sig/Alpa Route Start Time Stop Time Status Last Admin Dose Admin Ondansetron HCl 4 mg Q4HP PRN IV 02/07/25 23:00 02/09/25 15:16 4 MG Acetaminophen 650 mg Q6HP PRN PO 02/07/25 23:00 02/10/25 10:25 650 MG Lactulose 30 ml BID PO 02/08/25 10:00 02/12/25 21:16 30 ML Morphine Sulfate 1 mg Q4HP PRN IV 02/10/25 12:15 Acetaminophen/ Hydrocodone Bitart 1 tab Q4HPRN PRN PO 02/10/25 12:15 02/12/25 21:19 1 TAB Examination General Appearance: Alert, Oriented X3, Cooperative, No acute distress HEENT: Atraumatic, PERRLA, EOMI Neck: Supple Cardiovascular: Regular rate, Normal S1, Normal S2, No murmurs, Gallops, Rubs Abdomen: Normal bowel sounds, Other (possible ascites) Neuro: Cranial nerves 3-12 NL laboratory and microbiology Laboratory Tests 02/13/25 05:30 Test 02/13/25 05:30 Range/Units Serum Glucose 86 74-106 mg/dL Labs and/or images reviewed: Labs reviewed by me, Image(s) reviewed by me Problem List/Assessment/Plan Problem List/Assessment/Plan Left hepatic lobe mass 14.9 x 9 cm likely hepatocellular carcinoma Probable liver cirrhosis, decompensated Cholelithiasis History of hepatitis-B Mild ascites Transaminitis Plan: CT abdomen pelvis with IV contrast shows Diffuse infiltrative hypervascular masses within the left hepatic lobe measuring up to 14.2 cm as described above most consistent with diffusely infiltrative HCC. 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 Cholelithiasis. Atherosclerotic disease. Other findings as described Pending image guided liver biopsy Follow up with Oncology in the outpatient Pain management Patient may need MRI/MRCP for evaluation of CBD Thank you so much for the opportunity to consult on your patient. GI team will follow the patient. In case of any questions or concerns please feel free to reach out. Plan discussed with Dr. Rowell Plan discussed with: Other (RN) Dietary Evaluation Review Comments: Encourage and monitor PO intakes Expected Outcomes/Goals: gradual wt gain DALTON BIANCHI RESIDENT Feb 13, 2025 14:35
--- NOTE | 2025-02-13 16:11 | DVHPN2 ---
Subjective Yakut speaking; son helped with translation; continues to complain of abdominal pain Reviewed: Care Plan, H&P, Medications, Previous Orders, Radiology, Other (Consultations) Changes from previous H/P or p: No Changes Objective Vitals Vital Signs Date Time Temp Pulse Resp B/P (MAP) Pulse Ox O2 Delivery O2 Flow Rate FiO2 02/13/25 12:56 98.5 75 18 114/65 (81) 94 98.5 02/13/25 08:00 Room Air* 0 21 Intake/Output Intake and Output 02/13/25 07:00 Intake Total 980 ml Output Total 2000 ml Balance -1020 ml Intake Oral 980 ml Output Urine Total 2000 ml # Voids 6 General Appearance: Alert, Oriented X3, Cooperative, No acute distress HEENT: Atraumatic Neck: Supple Cardiovascular: Regular rate, Normal S1, Normal S2, No murmurs Abdomen: Normal bowel sounds, Soft, Other (Right upper quadrant tenderness) Extremities: No edema Neuro: Normal speech, Cranial nerves 3-12 NL Psych/Mental Status: Mental status NL, Mood NL Medications Current Medications Medications Dose Ordered Sig/Alpa Route Start Time Stop Time Status Last Admin Dose Admin Ondansetron HCl 4 mg Q4HP PRN IV 02/07/25 23:00 02/09/25 15:16 4 MG Acetaminophen 650 mg Q6HP PRN PO 02/07/25 23:00 02/10/25 10:25 650 MG Lactulose 30 ml BID PO 02/08/25 10:00 02/12/25 21:16 30 ML Morphine Sulfate 1 mg Q4HP PRN IV 02/10/25 12:15 Acetaminophen/ Hydrocodone Bitart 1 tab Q4HPRN PRN PO 02/10/25 12:15 02/12/25 21:19 1 TAB Laboratory Results Laboratory Tests 02/13/25 05:30 Chemistry Test 02/13/25 05:30 Calcium Level 9.2 mg/dL (8.7-10.4) Labs and/or images reviewed: Labs reviewed by me, Image(s) reviewed by me Assessment/Plan Assessment/Plan Covering: Right upper quadrant abdominal pain most likely due to suspected hepatocellular carcinoma with elevated AFP Suspected hepatocellular carcinoma; interventional radiologist ordered abdomen/pelvis CT with IV contrast before proceeding for biopsy tomorrow 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 LFTs Normocytic anemia; most likely inflammatory Essential hypertension Dyslipidemia Asymptomatic cholelithiasis History of hepatitis-B infection CEDRIC; most likely vasomotor nephro History of alcohol/tobacco use disorder; quit two years ago Mild ascites Reviewed lab work and available imaging studies including the results of abdomen/pelvis CT with IV contrast Continue pain management as indicated GI and interventional radiology are following No signs/symptoms of active bleeding Avoid hepatotoxic agents so no statin Avoid nephrotoxic agents; to monitoring kidney function after IV contrast To start antihypertensive medication if indicated Continue monitoring Goals of care discussed with the patient and his son for 20 minutes; full code Late Entry. This medical document was created using an electronic medical record system with computerized dictation system. Although this document has been carefully reviewed, there might still be some phonetic and typographical errors. These areas are purely typographical due to imperfections of the software programs, and do not reflect any compromise in the patient's medical care. Plan discussed with: Patient, Son, Other (Nurse) Date of Service: Feb 13, 2025 Billing Provider: GRAY MORGAN MD Common Visit Codes: [id number] INP/OBS CARE(HIGH) Secondary Visit Codes: [id number] CARE PLAN 30 MINUTES (20 minutes) GRAY MORGAN MD Feb 13, 2025 16:11
--- NOTE | 2025-02-13 16:43 | DVH ---
Indication: LIVER EVALUATION Technique: CT axial images of the abdomen are obtained with and without intravenous contrast. CT axia l images of the pelvis are also obtained on the delayed sequences. Coronal and sagittal reformats wer e obtained. Radiation Dose Information: CTDI volume is 7.81 mGy. Dose-length product is 841.16 mGy*cm Comparison: None FINDINGS: Lung bases demonstrate atelectasis. Adrenal glands unremarkable. Spleen enlarged measuring 13 cm craniocaudal. Pancreas unremarkable. Extensive hypervascular lesions within the left hepatic lobe that appear confluent measuring 14.2 x 9 .7 cm. There is enhancing tumor thrombus within the left and right portal veins, main portal vein. 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 Additional left hepatic lobe lesion measuring 3.4 x 3.8 c m. These lesions do demonstrate persistent enhancement on the delayed phases however are relatively h ypoenhancing relative to the hepatic in comparison to the arterial sequence. Some of the lesions do d emonstrate necrosis Cirrhotic morphology liver. Cholelithiasis. Esophageal, gastric, perisplenic varices. Small amount of ascites fluid. Stomach is partially distended. Small bowel loops are normal in caliber. Moderate volume stool in the colon. Abdominal aorta demonstrates atherosclerotic disease. Bladder distended. Small amount of free pelvic fluid. No inguinal lymphadenopathy. No acute osseous abnormality. Moderate thoracolumbar degenerative disc disease. 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 Cholelithiasis. Atherosclerotic disease. Other findings as described
[2025-02-14] VITALS (7 sets, daily range): BP systolic 108–138; BP diastolic 68–85; PULSE 57–73; RESP 16–17; TEMP 97.4–98.7; O2SAT 96–98
[2025-02-14 07:48] LABS: Hematocrit 32.4 % (41.0-53.0); Hemoglobin 11.2 g/dL (13.5-17.5); Mean Corpuscular Hemoglobin 33.4 pg (28.0-32.0); Mean Corpuscular Volume 96.4 fL (80.0-100.0); Nucleated Red Blood Cells % 0.1 %
[2025-02-14 08:52] LABS: Anion Gap 11 (5-15); Calcium 9.1 mg/dL (8.7-10.4); Carbon Dioxide 22 mmol/L (20-31); Chloride 105 mmol/L (98-107); Glucose 85 mg/dL (74-106); Potassium 4.4 mmol/L (3.5-5.1); Sodium 138 mmol/L (136-145)
[2025-02-14 08:53] LABS: Albumin 3.2 g/dL (3.2-4.8); BUN/Creatinine Ratio 16.2 (10.0-20.0); Blood Urea Nitrogen 17 mg/dL (9-23); Total Protein 7.7 g/dL (5.7-8.2)
[2025-02-14 08:54] LABS: Bilirubin, Total 0.9 mg/dL (0.2-1.0)
[2025-02-14 08:59] LABS: Alanine Aminotransferase 418 U/L (7-40); Alkaline Phosphatase 192 U/L (46-116)
[2025-02-14] MEDS: LIDOCAINE 2%HCL (LOCAL ANESTH.) INJ 10ml MDV ONE (09:51)
[2025-02-14] MEDS: GELATIN 1 SPONGE SIZE 50 TOP ONE (09:54)
[2025-02-14] MEDS: MIDAZOLAM HCL 2MG/2ML 2ml VIAL (1mg/ml) IV ONE (10:00)
[2025-02-14] MEDS: fentaNYL CITRATE 100 MCG/2 ML VL IV ONE (10:00)
--- NOTE | 2025-02-14 10:49 | DVHPN2 ---
Progress Note Date Seen: Feb 14, 2025 Resident Creating Document: DALTON BIANCHI RESIDENT Medical Necessity Reason Pt with a Central, PICC or Fol: No Subjective Review of Systems Patient seen and examined at bedside S/p liver biopsy Last BM 02/12/2025, on lactulose Discussed plan in detail with patient's son Mr. Lewis at [phone] Objective vital signs Vital Sign Date Time Temp Pulse Resp B/P (MAP) Pulse Ox O2 Delivery O2 Flow Rate FiO2 02/14/25 09:00 98.7 65 16 136/82 (100) 96 98.7 02/14/25 08:00 Room Air* 0 21 Total Intake and Output 02/13/25 02/13/25 02/14/25 15:00 23:00 07:00 Intake Total 0 ml 0 ml Balance 0 ml 0 ml medications Current Medications Medications Dose Ordered Sig/Alpa Route Start Time Stop Time Status Last Admin Dose Admin Ondansetron HCl 4 mg Q4HP PRN IV 02/07/25 23:00 02/09/25 15:16 4 MG Acetaminophen 650 mg Q6HP PRN PO 02/07/25 23:00 02/10/25 10:25 650 MG Lactulose 30 ml BID PO 02/08/25 10:00 02/13/25 21:54 30 ML Morphine Sulfate 1 mg Q4HP PRN IV 02/10/25 12:15 Acetaminophen/ Hydrocodone Bitart 1 tab Q4HPRN PRN PO 02/10/25 12:15 02/13/25 21:55 1 TAB Examination General Appearance: Alert, Oriented X3, Cooperative, No acute distress HEENT: Atraumatic, PERRLA, EOMI Neck: Supple Cardiovascular: Regular rate, Normal S1, Normal S2, No murmurs, Gallops, Rubs Abdomen: Normal bowel sounds, Other (possible ascites) Neuro: Cranial nerves 3-12 NL laboratory and microbiology Laboratory Tests 02/14/25 06:40 Test 02/14/25 06:40 Range/Units Serum Glucose 85 74-106 mg/dL Labs and/or images reviewed: Labs reviewed by me, Image(s) reviewed by me Problem List/Assessment/Plan Problem List/Assessment/Plan Left hepatic lobe mass 14.9 x 9 cm likely hepatocellular carcinoma Probable liver cirrhosis, decompensated Cholelithiasis History of hepatitis-B Mild ascites Transaminitis Plan: CT abdomen pelvis with IV contrast shows Diffuse infiltrative hypervascular masses within the left hepatic lobe measuring up to 14.2 cm as described above most consistent with diffusely infiltrative HCC. 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 Cholelithiasis. Atherosclerotic disease. Other findings as described s/p image guided liver biopsy Follow up with Oncology in the outpatient Pain management Patient may need MRI/MRCP for evaluation of CBD Awaiting biopsy results Thank you so much for the opportunity to consult on your patient. GI team will follow the patient. In case of any questions or concerns please feel free to reach out. Plan discussed with Dr. Rowell Plan discussed with: Son, Other (RN) Dietary Evaluation Review Comments: Encourage and monitor PO intakes Expected Outcomes/Goals: gradual wt gain DALTON BIANCHI RESIDENT Feb 14, 2025 10:48
--- NOTE | 2025-02-14 11:16 | DVH ---
US US GUIDANCE FOR NEEDLE PLACEME, HISTORY: LIVER BIOPSY PROCEDURE: Informed consent was obtained. The patient was placed supine on the CT scanner, and limite d US was performed of the liver. IV sedation was administered. The skin over the area of interest was prepped with chlorhexidine which was allowed to dry and draped in the usual sterile fashion. Time ou t was performed. 1% local lidocaine was administered. With intermittent US guidance, Temno 17 gauge o uter coaxial guiding needle was advanced into the mass and 2 biopsies were obtained using Temno 18 ga uge inner core biopsy needle. The specimens were placed in formalin and sent to pathology for analysi s. The needle was withdrawn , and the visceral tract embolized with gelfoam and 8 minutes of manual p ressure. Post procedural images were obtained. No immediate complication was identified. SEDATION: Dr. Radha Workman was personally responsible for the administration of moderate sedation during the procedure performed, including the use of an independent trained observer who had no other duties during the procedure. The drugs utilized were IV fentanyl and versed (see nursing log for details). The total time of supervision by the attending physician was approximately 30 minutes. FINDINGS: Echogenic left hepatic lobe liver mass. Intra-procedural images demonstrate biopsy needle w ithin the margin of targeted lesion. Post procedural images do not demonstrate any significant hemorr matthew. IMPRESSION: US guided left liver lobe mass biopsy. Pathology results pending.
--- NOTE | 2025-02-14 17:24 | DVHPN2 ---
Subjective Patient status post liver biopsy today for probable hepatocellular carcinoma. He is otherwise stable in bed. No complaints. Reviewed: Care Plan, H&P, Medications, Previous Orders, Radiology, Other (Consultations) Changes from previous H/P or p: No Changes Objective Vitals Vital Signs Date Time Temp Pulse Resp B/P (MAP) Pulse Ox O2 Delivery O2 Flow Rate FiO2 02/14/25 17:00 97.4 66 16 132/85 (101) 96 97.4 02/14/25 08:00 Room Air* 0 21 Intake/Output Intake and Output 02/14/25 07:00 Intake Total 0 ml Balance 0 ml Intake Oral 0 ml # Voids 6 General Appearance: Alert, Oriented X3, Cooperative, No acute distress HEENT: Atraumatic Neck: Supple Cardiovascular: Regular rate, Normal S1, Normal S2, No murmurs Abdomen: Normal bowel sounds, Soft, Other (Right upper quadrant tenderness) Extremities: No edema Neuro: Normal speech, Cranial nerves 3-12 NL Psych/Mental Status: Mental status NL, Mood NL Medications Current Medications Medications Dose Ordered Sig/Alpa Route Start Time Stop Time Status Last Admin Dose Admin Ondansetron HCl 4 mg Q4HP PRN IV 02/07/25 23:00 02/09/25 15:16 4 MG Acetaminophen 650 mg Q6HP PRN PO 02/07/25 23:00 02/10/25 10:25 650 MG Lactulose 30 ml BID PO 02/08/25 10:00 02/13/25 21:54 30 ML Morphine Sulfate 1 mg Q4HP PRN IV 02/10/25 12:15 Acetaminophen/ Hydrocodone Bitart 1 tab Q4HPRN PRN PO 02/10/25 12:15 02/13/25 21:55 1 TAB Laboratory Results Laboratory Tests 02/14/25 06:40 Chemistry Test 02/14/25 06:40 Albumin 3.2 g/dL (3.2-4.8) Calcium Level 9.1 mg/dL (8.7-10.4) Total Protein 7.7 g/dL (5.7-8.2) LFT Test 02/14/25 06:40 Alanine Aminotransferase (ALT) 418 U/L (7-40) H Alkaline Phosphatase 192 U/L (46-116) H Aspartate Amino Transferase (AST) 383 U/L (13-40) H Total Bilirubin 0.9 mg/dL (0.2-1.0) Assessment/Plan Assessment/Plan Right upper quadrant abdominal pain most likely due to suspected hepatocellular carcinoma with elevated AFP Suspected hepatocellular carcinoma; status post liver biopsy today 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 LFTs Normocytic anemia; most likely inflammatory Essential hypertension Dyslipidemia Asymptomatic cholelithiasis History of hepatitis-B infection CEDRIC; most likely vasomotor nephro History of alcohol/tobacco use disorder; quit two years ago Mild ascites Reviewed lab work and available imaging studies including the results of abdomen/pelvis CT with IV contrast Continue pain management as indicated GI and interventional radiology are following No signs/symptoms of active bleeding Avoid hepatotoxic agents so no statin Avoid nephrotoxic agents; to monitoring kidney function after IV contrast To start antihypertensive medication if indicated Continue current supportive care and treatment as he is on overnight. If he remains stable consider discharge home tomorrow with outpatient follow up for biopsy results and oncology referral as appropriate. Discussed with the patient's nurse/patient regarding care plan. Plan discussed with: Patient, Other My Orders Orders - GLEN MILLARD MD Procedure Category Date Status Time Follow Up In 1 Week ORDERS 02/14/25 Transmitted 17:13 Hepatic Panel LAB 02/15/25 Verified 06:00 Date of Service: Feb 14, 2025 Billing Provider: GLEN MILLARD MD Common Visit Codes: [id number] INP/OBS CARE(MOD) GLEN MILLARD MD Feb 14, 2025 17:24
[2025-02-15] VITALS (7 sets, daily range): BP systolic 105–132; BP diastolic 60–80; PULSE 62–82; RESP 16–20; TEMP 97.7–98.3; O2SAT 92–98
[2025-02-15 07:46] LABS: Bilirubin, Total 0.9 mg/dL (0.2-1.0); Total Protein 7.7 g/dL (5.7-8.2)
[2025-02-15 07:54] LABS: Alanine Aminotransferase 446.0 U/L (7-40); Albumin 3.2 g/dL (3.2-4.8); Alkaline Phosphatase 196.0 U/L (46-116)
[2025-02-15 08:04] LABS: Bilirubin, Direct 0.4 mg/dL (<0.3)
--- NOTE | 2025-02-15 16:40 | DVHPN2 ---
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 Tolerating diet, denies any nausea vomiting Does note some weakness Notes some right upper quadrant soreness Objective vital signs Vital Sign Date Time Temp Pulse Resp B/P (MAP) Pulse Ox O2 Delivery O2 Flow Rate FiO2 02/15/25 16:16 97.9 73 18 126/80 (95) 98 97.9 02/15/25 08:00 Room Air* 0 21 Total Intake and Output 02/14/25 02/14/25 02/15/25 14:59 22:59 06:59 Intake Total 120 ml 350 ml Balance 120 ml 350 ml medications Current Medications Medications Dose Ordered Sig/Alpa Route Start Time Stop Time Status Last Admin Dose Admin Ondansetron HCl 4 mg Q4HP PRN IV 02/07/25 23:00 02/09/25 15:16 4 MG Acetaminophen 650 mg Q6HP PRN PO 02/07/25 23:00 02/10/25 10:25 650 MG Lactulose 30 ml BID PO 02/08/25 10:00 02/15/25 10:01 30 ML Morphine Sulfate 1 mg Q4HP PRN IV 02/10/25 12:15 Acetaminophen/ Hydrocodone Bitart 1 tab Q4HPRN PRN PO 02/10/25 12:15 02/14/25 22:01 1 TAB Examination General Appearance: Alert, Oriented X3, Cooperative, No acute distress HEENT: Atraumatic, PERRLA, EOMI Neck: Supple Cardiovascular: Regular rate, Normal S1, Normal S2, No murmurs, Gallops, Rubs Abdomen: Normal bowel sounds, Other (possible ascites) Neuro: Cranial nerves 3-12 NL laboratory and microbiology Laboratory Tests 02/14/25 06:40 Test 02/14/25 06:40 Range/Units Serum Glucose 85 74-106 mg/dL Labs and/or images reviewed: Labs reviewed by me, Image(s) reviewed by me Problem List/Assessment/Plan Problem List/Assessment/Plan Left hepatic lobe mass 14.9 x 9 cm likely hepatocellular carcinoma Probable liver cirrhosis, decompensated Cholelithiasis History of hepatitis-B Mild ascites Transaminitis Plan: CT abdomen pelvis with IV contrast shows Diffuse infiltrative hypervascular masses within the left hepatic lobe measuring up to 14.2 cm as described above most consistent with diffusely infiltrative HCC. 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 Cholelithiasis. Atherosclerotic disease. 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 A voicemail was also left for patient's son at [phone]. Follow up appointment in the discharge clinic was also set up within 1 week. Thank you so much for the opportunity to consult on your patient. GI team will follow the patient. In case of any questions or concerns please feel free to reach out. Plan discussed with Dr. Rowell Plan discussed with: Patient, Son, Other (RN) Dietary Evaluation Review Comments: Encourage and monitor PO intakes Expected Outcomes/Goals: gradual wt gain DALTON BIANCHI RESIDENT Feb 15, 2025 16:40
[2025-02-16 01:04] VITALS: BP 122/64; PULSE 67; RESP 17; TEMP 97.9; O2SAT 97
[2025-02-16 05:41] VITALS: BP 128/62; PULSE 69; RESP 17; TEMP 97.8; O2SAT 99
[2025-02-16 08:00] VITALS: PULSE 82; RESP 20; O2SAT 95
[2025-02-16 08:59] VITALS: BP 125/57; PULSE 72; RESP 18; TEMP 97.9; O2SAT 95
[2025-02-16] MEDS: MORPHINE SULFATE INJ 2 MG/ml SYRG IV PRN (09:19)
[2025-02-16 10:00] VITALS: BP 130/80; PULSE 80; RESP 18
--- NOTE | 2025-02-16 10:36 | DVHPN2 ---
Subjective The patient is seen and examined at bedside. The patient complained of ascites and abdominal pain. Pain is not controlled. Reviewed: Care Plan, H&P, Medications, Previous Orders, Radiology, Other (Consultations) Objective Vitals Vital Signs Date Time Temp Pulse Resp B/P (MAP) Pulse Ox O2 Delivery O2 Flow Rate FiO2 02/16/25 09:19 70 18 130/60 02/16/25 08:59 97.9 95 97.9 02/15/25 20:00 Room Air* 0 21 Intake/Output Intake and Output 02/16/25 07:00 Intake Total 890 ml Output Total 550 ml Balance 340 ml Intake Oral 890 ml Output Urine Total 550 ml # Voids 2 General Appearance: Alert, Oriented X3, Cooperative, No acute distress HEENT: Atraumatic Neck: Supple Cardiovascular: Regular rate, Normal S1, Normal S2, No murmurs Abdomen: Normal bowel sounds, Soft, Other (Right upper quadrant tenderness) Extremities: No edema Neuro: Normal speech, Cranial nerves 3-12 NL Psych/Mental Status: Mental status NL, Mood NL Medications Current Medications Medications Dose Ordered Sig/Alpa Route Start Time Stop Time Status Last Admin Dose Admin Ondansetron HCl 4 mg Q4HP PRN IV 02/07/25 23:00 02/09/25 15:16 4 MG Acetaminophen 650 mg Q6HP PRN PO 02/07/25 23:00 02/10/25 10:25 650 MG Lactulose 30 ml BID PO 02/08/25 10:00 02/16/25 09:14 30 ML Morphine Sulfate 1 mg Q4HP PRN IV 02/10/25 12:15 02/16/25 09:19 1 MG Acetaminophen/ Hydrocodone Bitart 1 tab Q4HPRN PRN PO 02/10/25 12:15 02/14/25 22:01 1 TAB Laboratory Results Laboratory Tests 02/14/25 06:40 Assessment/Plan Assessment/Plan Assessment and plan # 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 Will continue pain meds tonny feto protein level is elevated. Still waiting for GI specialist to see patient. Waiting for interventional radiologists to biopsy the liver lesion. Discussed with Dr. Cochran, GI specialist on-call. Recommend follow up with Heme- Onc as outpatient This medical document was created using an electronic medical record system with [employer] direct computerized dictation system. Although this document has been carefully reviewed, there may still be some phonetic and typographical errors. These areas are purely typographical due to imperfections of the software programs, and do not reflect any compromise in the patient's medical care. ALIZE OROZCO MD Feb 16, 2025 10:36
[2025-02-16] MEDS ORDERED: HYDR-4902 PO (11:46)
--- NOTE | 2025-02-16 11:48 | DVHDS2 ---
Discharge Summary Date of Admission Feb 07, 2025 at 22:47 Date of Discharge: Feb 16, 2025 Admitting Diagnosis Right upper quadrant abdominal pain 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 LFTs Normocytic anemia Essential hypertension Dyslipidemia Asymptomatic cholelithiasis History of hepatitis-B infection CEDRIC; most likely vasomotor History of alcohol/tobacco use disorder; quit two years ago Mild ascites Labs/Diagnostic Data: Laboratory Results Test 02/15/25 06:42 02/14/25 06:40 02/09/25 13:37 02/08/25 16:15 Total Bilirubin 0.9 mg/dL (0.2-1.0) Direct Bilirubin 0.4 mg/dL (<0.3) Aspartate Amino Transferase (AST) 408 U/L (13-40) Alanine Aminotransferase (ALT) 446 U/L (7-40) Alkaline Phosphatase 196 U/L (46-116) Total Protein 7.7 g/dL (5.7-8.2) Albumin 3.2 g/dL (3.2-4.8) White Blood Count 4.6 10^3/uL (4.4-10.8) Red Blood Count 3.36 10^6/uL (4.5-5.90) Hemoglobin 11.2 g/dL (13.5-17.5) Hematocrit 32.4 % (41.0-53.0) Mean Corpuscular Volume 96.4 fL (80.0-100.0) Mean Corpuscular Hemoglobin 33.4 pg (28.0-32.0) Mean Corpuscular Hemoglobin Concent 34.6 g/dL (32.0-36.0) Red Cell Distribution Width 16.8 % (11.8-14.3) Platelet Count 161 10^3/uL (140-450) Mean Platelet Volume 8.7 fL (6.9-10.8) Neutrophils (%) (Auto) 61.6 % (37.0-80.0) Lymphocytes (%) (Auto) 22.2 % (10.0-50.0) Monocytes (%) (Auto) 10.5 % (0.0-12.0) Eosinophils (%) (Auto) 5.0 % (0.0-7.0) Basophils (%) (Auto) 0.7 % (0.0-2.0) Neutrophils # (Auto) 2.8 10 ^3/uL (1.6-8.6) Lymphocytes # (Auto) 1.0 10 ^3/uL (0.4-5.4) Monocytes # (Auto) 0.5 10 ^3/uL (0-1.3) Eosinophils # (Auto) 0.2 10 ^3/uL (0-0.8) Basophils # (Auto) 0 10 ^3/uL (0-0.2) Nucleated Red Blood Cells 0.1 % Sodium Level 138 mmol/L (136-145) Potassium Level 4.4 mmol/L (3.5-5.1) Chloride Level 105 mmol/L (98-107) Carbon Dioxide Level 22 mmol/L (20-31) Anion Gap 11 (5-15) Blood Urea Nitrogen 17 mg/dL (9-23) Creatinine 1.05 mg/dL (0.700-1.30) Glomerular Filtration Rate Calc 77 mL/min (>90) BUN/Creatinine Ratio 16.2 (10.0-20.0) Serum Glucose 85 mg/dL (74-106) Calcium Level 9.1 mg/dL (8.7-10.4) Tumor Marker Alpha Fetoprotein 15.4 ng/mL (0.0-8.4) SARS-CoV-2 Antigen (Rapid) Negative (NEGATIVE) Test 02/08/25 07:28 02/07/25 16:33 Prothrombin Time 11.5 sec (9.3-11.8) Prothrombin Time INR 1.09 (0.9-1.15) Activated Partial Thromboplast Time 38.4 SEC (24.5-34.5) Ammonia 20 umol/L (11-32) Carcinoembryonic Antigen 0.80 ng/mL (<=5.0) Platelet Estimate Decreased Large Platelets Few Red Blood Cell Morphology Normal Other Laboratory Tests 02/14/25 06:40 Brief Hx & Hospital Course: This is a 69 years old Welsh speaking male come into emergency department because severe abdominal pain. He has a history of hepatitis B positive. According to the patient he had been treated as outpatient. However he is a poor historian and I could not find any evidence of treatment for his hepatitis- B. He not on any antiviral medication. The patient continuing to have abdominal pain. He also complained of weakness and being tired. He stated his pain is 10/10 with intensity, sharp and continuing for the whole day. The patient could not eat and had lost appetite for about a month per son. He also had rapid weight loss about 30-40 lb per month. The patient was admitted. 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 Cholelithiasis. Atherosclerotic disease. Patient was given pain medication with Bandera for pain control. The patient has elevation of alpha-fetoprotein: 16.1. The patient subsequently has a liver biopsy done. GI specialist was consulted. Today the patient's abdominal pain improved. Patient is able to eat and keep food down. No nausea and vomiting. I am going to discharge him home. Discussed with son in length. I will call the patient when the biopsy results come back. Patient needs outpatient follow up with GI specialist. The patient needs outpatient workup from Oncology when pathology report available. Activity as tolerated. Diet per home diet. Follow up with primary care physician 1-2 weeks. Physical exam: HEENT: Normocephalic atraumatic pupils equal react to light and accommodation. Extraocular muscles intact, conjunctiva pink, oropharynx moist, no thrush, no exudate. Lymphatic: No lymphadenopathy Cardiovascular exam: S1, S2 was heard. No murmurs, rubs, gallops Lung: Clear on auscultation bilaterally, no wheeze, rale, rhonchi. GI: Abdominal soft, nondistended, nontenderness, positive bowel sounds. Extremity: No crepitus, cyanosis, edema. Pedal pulses present bilateral. Full range of motion. Skin: Normal turgor, no rash. Psych: Alert, oriented x3. Neurology: No focal deficits, cranial nerve II to XII grossly intact. This medical document was created using an electronic medical record system with [employer] direct computerized dictation system. Although this document has been carefully reviewed, there may still be some phonetic and typographical errors. These areas are purely typographical due to imperfections of the software programs, and do not reflect any compromise in the patient's medical care. Condition at Discharge: Stable Final Diagnosis/Problems List Right upper quadrant abdominal pain most likely due to suspected hepatocellular carcinoma with elevated AFP Suspected hepatocellular carcinoma; status post liver biopsy today 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 LFTs Normocytic anemia; most likely inflammatory Essential hypertension Dyslipidemia Asymptomatic cholelithiasis History of hepatitis-B infection CEDRIC; most likely vasomotor nephro History of alcohol/tobacco use disorder; quit two years ago Mild ascites Discharge Disposition: Home Discharge Instruct/Medications Diet: Consistent carbohydrate, Cardiac 2g Na,low cholest Activity: No Restrictions, As Tolerated Follow Up/Referral: PCP next week for liver biopsy results and referral to Cancer doctor Medications: home meds Scheduled PRN Hydrocodone-Acetaminophen (Hydrocodone Bitartrate/AC 5-325 mg), 1 TAB PO Q4HPRN PRN Discharge Statement: "Patient was advised to return to the ER or call 911 if any headaches, dizziness, shortness of breath, chest pain, abdominal pain, bleeding, fevers, or worsening of medical condition. Patient was counseled about treatment plan, medications, possible side effects, patientverbalized understanding. All questions were answered to the best of my ability. This discharge took greater then 30 minutes in planning, reviewing documentation, counseling the patient, and discussing with other team members." ASSESSMENT ASSESSMENT Assessment RIGHT UPPER QUDRANT ABDOMINAL PAIN MOST LIKELY DUE TO SUSPECTED HEPATOCELLULAR CARCINOMA WITH ELEVATED AFP ALCOHOLIC HEPATITIS B LIVER CIRRHOSIS Date of Service: Feb 16, 2025 Billing Provider: ALIZE OROZCO MD Common Visit Codes: [id number]/OBS DISCH DAY >30min ALIZE OROZCO MD Feb 16, 2025 11:48
== END 2025-02-16 11:42 | disposition home or self-care (01) | DRG 281 ==
LOC: EDBD 16:07 → ER 16:07 → OVERFLOW 22:47 → WEST WING 02-08 19:20
PROVIDERS: ADMIT Internal Medicine; ATTEND Internal Medicine
PROC: 0FB23ZX Excision of Left Lobe Liver, Percutaneous Approach, Diagnostic (ICD-10-PCS; principal; 2025-02-14)
DX: C22.0 Liver cell carcinoma (principal); N17.0 Acute kidney failure with tubular necrosis; D69.6 Thrombocytopenia, unspecified; K70.31 Alcoholic cirrhosis of liver with ascites; K70.11 Alcoholic hepatitis with ascites; I81 Portal vein thrombosis; B19.10 Unspecified viral hepatitis B without hepatic coma; I10 Essential (primary) hypertension; I86.4 Gastric varices; I85.10 Secondary esophageal varices without bleeding; D64.9 Anemia, unspecified; K80.20 Calculus of gallbladder without cholecystitis without obstruction; R16.1 Splenomegaly, not elsewhere classified; K59.00 Constipation, unspecified; E78.00 Pure hypercholesterolemia, unspecified; Z87.891 Personal history of nicotine dependence
CPT/HCPCS: 36415; 47000; 71045; 74176; 74178; 76705; 76942; 80048; 80053; 80076; 82105; 82140; 82378; 85025; 85610; 85730; 87426; 96365; G0378; J2003; J2250; J2405; J3490

== ENCOUNTER 2025-03-10 19:21 | Inpatient (IN) | payer MEDICAID ==
[~2025-03-10] VITALS: Ht 152.4 cm; Wt 46.6 kg
[~2025-03-10 19:21] MED LIST: HYDR-4902 PO
--- NOTE | 2025-03-10 19:43 | ED.PDOC ---
GI ASSESSMENT HPI Comments 69-year-old male who came to ER via EMS for abdominal pain. Patient was discharged here last February 16 and was diagnosed with 1. Right upper quadrant abdominal pain most likely due to suspected hepatocellular carcinoma with elevated AFP, 2. Suspected hepatocellular carcinoma; status post liver biopsy today, 3. 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LFTs, 4. Normocytic anemia; most likely inflammatory, 5. Essential hypertension, 6. Dyslipidemia, 7. Asymptomatic cholelithiasis , 8. History of hepatitis-B infection , 9. 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 History of alcohol/tobacco use disorder; quit two years ago, 12. Mild ascites. Patient has yet to see an oncologist regarding his issues. For the past few ice patient has been experiencing a right upper quadrant abdominal pain, progressively worsening prompting check up Chief Complaint: Abdominal Pain Time Seen by MD: 19:41 Reviewed Notes: Nurses Notes Allergies: Coded Allergies: NO KNOWN ALLERGIES (Unverified , 02/07/25) Home Meds Active Scripts Hydrocodone-Acetaminophen (Hydrocodone Bitartrate/AC 5-325 mg) 1 Tab Tab, 1 TAB PO Q4HPRN PRN, #30 TAB Prov:ALIZE OROZCO MD 02/16/25 Information Source: Patient, Emergency Med Personnel Mode of Arrival: EMS Timing: Days Duration: Since onset Prehospital treatment: None Recent: Other (Liver cancer) Past Medical History PAST MEDICAL HISTORY: Anemia, Cancer (Liver), Gallstones, High Lipids, HTN Surgical History: Denies all surgeries Social History Smoker: Non-Smoker Alcohol: Denies ETOH Use Drugs: Denies Drug Use Lives In: Home Constitutional: denies: chills, diaphoresis, fatigue, fever, malaise, sweats, weakness, others EENTM: denies: blurred vision, double vision, ear bleeding, ear discharge, ear drainage, ear pain, ear ringing, eye pain, eye redness, hearing loss, mouth pain, mouth swelling, nasal discharge, nose bleeding, nose congestion, nose pain, photophobia, tearing, throat pain, throat swelling, voice changes, others Respiratory: denies: cough, hemoptysis, orthopnea, SOB at rest, shortness of breath, SOB with excertion, stridor, wheezing, others Cardiovascular: denies: chest pain, dizzy spells, diaphoresis, Dyspnea on exertion, edema, irregular heart beat, left arm pain, lightheadedness, palpitations, PND, syncope, others Gastrointestinal: reports: abdominal pain; denies: abdomen distended, blood streaked bowels, constipated, diarrhea, dysphagia, difficulty swallowing, hematemesis, melena, nausea, poor appetite, poor fluid intake, rectal bleeding, rectal pain, vomiting, others Genitourinary: denies: burning, dysuria, flank pain, frequency, hematuria, incontinence, penile discharge, penile sore, pain, testicle pain, testicle swelling, urgency, others Neurological: denies: dizziness, fainting, headache, left sided numbness, left sided weakness, numbness, paresthesia, pre-existing deficit, right sided numbnes s, right sided weakness, seizure, speech problems, tingling, tremors, weakness, others Musculoskeletal: denies: back pain, gout, joint pain, joint swelling, muscle pain, muscle stiffness, neck pain, others Integumetry: denies: bruises, change in color, change in hair/nails, dryness, laceration, lesions, lumps, rash, wounds, others Allergic/Immunocompromised: denies: Difficulty Healing, Frequent Infections, Hives, Itching, others Hematologic/Lymphatic: denies: anemia, blood clots, easy bleeding, easy bruising, swollen glands, others Endocrine: denies: excessive hunger, excessive sweating, excessive thirst, excessive urination, flushing, intolerance to cold, intolerance to heat, unexplained weight gain, unexplained weight loss, others Psychiatric: denies: anxiety, bipolar disorder, depression, hopeless, panic disorder, schizophrenia, sleepless, suicidal, others Physical Exam General Appearance: No Apparent Distress, Normal HEENT: Normal ENT Inspection, Pharynx Normal, TMs Normal Neck: Full Range of Motion, Non-Tender, Normal, Normal Inspection Respiratory: Chest Non-Tender, Lungs Clear, No Accessory Muscle Use, No Respiratory Distress, Normal Breath Sounds Cardiovascular: No Edema, No JVD, No Murmur, No Gallop, Normal Peripheral Pulses, Regular Rate/Rhythm Breast Exam: Deferred Gastrointestinal: No Organomegaly, No Pulsatile Mass, Normal Bowel Sounds, RUQ, Soft, Tenderness Genitalia: Deferred Pelvic: Deferred Rectal: Deferred Extremities: No calf tenderness, Normal capillary refill, Normal inspection, Normal range of motion, Non-tender, No pedal edema Musculoskeletal : Apperance: Normal Neurologic: Alert, animal behaviorist II-XII nml as Tested, No Motor Deficits, Normal Affect, Normal Mood, No Sensory Deficits Cerebellar Function: Normal Reflexes: Normal Skin: Dry, Normal Color, Warm Lymphatic: No Adenopathy Was a procedure done? 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 Indication: Hypotension, Volume resuscitation, Suspected infection Room prepared for procedure: Yes Log Chipper Operator performed hand hygien: Yes Maximal sterile barrier precau: Mask/Eye shield, Sterile gown, Cap, Sterlie gloves, Large sterlie drape Skin Preparation: Providine iodine Skin preparation completely dr: Yes Central line catheter type: Tunneled- not dialysis Number of lumens: 3 Central line exchanged over a: Yes Antiseptic ointment applied to: Yes Post Assessment: Chest X-Ray Informed consent obtained: Yes Risks/benefits/alt described: Yes Intubation Indication: Respiratory Insufficiency, Altered Mental Status, Airway Protection Prep: Preoxygenation Pretreated with: Sedation Medicated with: Other (Etomidate, rocuronium) Intubation Approach: Orotracheal Intubation size: cm (7.5) Informed consent obtained: Yes Risks/benefits/alt described: Yes GI differential Dx Differential Diagnosis: Gastritis/PUD, Gastroenteritis, Hepatitis, Pancreatitis, Other (Liver cancer) X-Ray, Labs, Meds, VS Vital Signs Date Time Temp Pulse Resp B/P (MAP) Pulse Ox O2 Delivery O2 Flow Rate FiO2 03/10/25 22:25 75 03/10/25 21:41 75 18 145/115 03/10/25 19:33 97.6 60 16 81/47 95 97.6 03/10/25 19:21 61 Lab Test 03/10/25 22:14 03/10/25 20:14 Range/Units Lactic Acid Level 7.1 *H 5.4 *H 0.4-2.0 mmol/L White Blood Count 10.5 4.4-10.8 10^3/uL Red Blood Count 2.61 L 4.5-5.90 10^6/uL Hemoglobin 8.6 L 13.5-17.5 g/dL Hematocrit 25.7 L 41.0-53.0 % Mean Corpuscular Volume 98.3 80.0-100.0 fL Mean Corpuscular Hemoglobin 32.9 H 28.0-32.0 pg Mean Corpuscular Hemoglobin Concent 33.5 32.0-36.0 g/dL Red Cell Distribution Width 17.4 H 11.8-14.3 % Platelet Count 150 140-450 10^3/uL Mean Platelet Volume 9.5 6.9-10.8 fL Neutrophils (%) (Auto) 61.9 37.0-80.0 % Lymphocytes (%) (Auto) 27.9 10.0-50.0 % Monocytes (%) (Auto) 7.0 0.0-12.0 % Eosinophils (%) (Auto) 2.3 0.0-7.0 % Basophils (%) (Auto) 0.9 0.0-2.0 % Neutrophils # (Auto) 6.5 1.6-8.6 10 ^3/uL Lymphocytes # (Auto) 2.9 0.4-5.4 10 ^3/uL Monocytes # (Auto) 0.7 0-1.3 10 ^3/uL Eosinophils # (Auto) 0.2 0-0.8 10 ^3/uL Basophils # (Auto) 0.1 0-0.2 10 ^3/uL Nucleated Red Blood Cells 0.2 % Prothrombin Time Pending Prothrombin Time INR Pending Activated Partial Thromboplast Time Pending Sodium Level 142 136-145 mmol/L Potassium Level 3.7 3.5-5.1 mmol/L Chloride Level 108 H 98-107 mmol/L Carbon Dioxide Level 21 20-31 mmol/L Anion Gap 13 5-15 Blood Urea Nitrogen 24 H 9-23 mg/dL Creatinine 1.76 H 0.700-1.30 mg/dL Glomerular Filtration Rate Calc 42 >90 mL/min BUN/Creatinine Ratio 13.6 10.0-20.0 Serum Glucose 245 H 74-106 mg/dL Calcium Level 8.7 8.7-10.4 mg/dL Total Bilirubin 0.7 0.2-1.0 mg/dL Aspartate Amino Transferase (AST) 381 H 13-40 U/L Alanine Aminotransferase (ALT) 467 H 7-40 U/L Alkaline Phosphatase 178 H 46-116 U/L Total Protein 6.6 5.7-8.2 g/dL Albumin 2.8 L 3.2-4.8 g/dL Lipase 41 12-53 U/L Current Medications Medications (Trade) Dose Ordered Sig/Alpa Route Start Time Stop Time Status Last Admin Sodium Chloride 1,000 ml @ 1,000 mls/hr Q1H ONCE IVB 03/10/25 19:45 03/10/25 20:44 DC 03/10/25 20:37 Hydromorphone HCl (Dilaudid Injection) 0.5 mg ONCE ONCE IV 03/10/25 20:30 03/10/25 20:31 DC 03/10/25 21:41 Ondansetron HCl (Zofran) 4 mg ONCE ONCE IV 03/10/25 20:30 03/10/25 20:31 DC 03/10/25 21:41 Albumin Human 100 ml @ 100 mls/hr ONCE ONCE IV 03/10/25 21:15 03/10/25 22:14 DC 03/10/25 22:11 Sodium Chloride 1,000 ml @ 1,000 mls/hr Q1H ONCE IV 03/10/25 21:15 03/10/25 22:14 DC 03/10/25 21:35 Piperacillin Sod/ Tazobactam Sod 100 ml @ 100 mls/hr ONCE ONCE IV 03/10/25 22:00 03/10/25 22:59 DC 03/10/25 22:55 Metronidazole 100 ml @ 100 mls/hr ONCE ONCE IV 03/10/25 22:00 03/10/25 22:59 DC 03/10/25 22:18 Time of 1ST Reevaluation: 19:42 Reevaluation 1ST: Unchanged Patient Education/Counseling: Diagnosis, Treatment, Other (Patient speaks Czech) Family Education/Counseling: No Family Present SEPSIS Sepsis Screen Physician Orders Urinalysis (03/10/25 19:30) Ct Ab Pel Wo Con-No Oral Or Iv (03/10/25 19:37) Blood Culture (03/10/25 19:37) Norepinephrine 8 Mg/250ml Kit (Levophed) (03/10/25 23:45) Sodium Chloride 0.9% (03/10/25 23:45) Norepinephrine 8 Mg/250ml Kit (Levophed) (03/10/25 23:45) PTPTT (03/10/25 23:42) Type And Screen (03/10/25 23:42) Packedcells -Active Bleeding (03/10/25 23:42) Midazolam Drip 50 Mg/50ml (Versed Drip 5 (03/11/25 00:00) Rass Sedation Scale Q1HR (03/10/25 23:53) Communication Order (03/10/25 23:53) Vital Signs Date Time Temp Pulse Resp B/P (MAP) Pulse Ox O2 Delivery O2 Flow Rate FiO2 03/10/25 22:25 75 03/10/25 21:41 75 18 145/115 03/10/25 19:33 97.6 60 16 81/47 95 97.6 03/10/25 19:21 61 Laboratory Tests Test 03/10/25 20:14 03/10/25 22:14 Lactic Acid Level 5.4 mmol/L (0.4-2.0) *H 7.1 mmol/L (0.4-2.0) *H White Blood Count 10.5 10^3/uL (4.4-10.8) Medications Medications Dose Ordered Sig/Alpa Route Start Time Stop Time Status Last Admin Dose Admin Albumin Human 100 ml @ 100 mls/hr ONCE ONCE IV 03/10/25 21:15 03/10/25 22:14 DC 03/10/25 22:11 Hydromorphone HCl 0.5 mg ONCE ONCE IV 03/10/25 20:30 03/10/25 20:31 DC 03/10/25 21:41 Metronidazole 100 ml @ 100 mls/hr ONCE ONCE IV 03/10/25 22:00 03/10/25 22:59 DC 03/10/25 22:18 Ondansetron HCl 4 mg ONCE ONCE IV 03/10/25 20:30 03/10/25 20:31 DC 03/10/25 21:41 Piperacillin Sod/ Tazobactam Sod 100 ml @ 100 mls/hr ONCE ONCE IV 03/10/25 22:00 03/10/25 22:59 DC 03/10/25 22:55 Sodium Chloride 1,000 ml @ 1,000 mls/hr Q1H ONCE IV 03/10/25 21:15 03/10/25 22:14 DC 03/10/25 21:35 Sodium Chloride 1,000 ml @ 1,000 mls/hr Q1H ONCE IVB 03/10/25 19:45 03/10/25 20:44 DC 03/10/25 20:37 Departure 1 Departure Time of Disposition: 00:11 Impression: Primary Impression: Cirrhosis of liver Additional Impressions: Hemoperitoneum COPD (chronic obstructive pulmonary disease) Respiratory failure with hypoxia Hypotension Acute renal injury Disposition: ADMITTED INPATIENT Admit to: ICU Condition: Critical Comments 69 year old male recently admitted and diagnosed with some kind of liver cancer and history of COPD and cirrhosis now presents with abdominal pain and generalized weakness. Patient has been hypotensive. CT of the abdomen and pelvis shows liver cirrhosis and hemoperitoneum. I ordered blood transfusion. I ordered Levophed. Patient was intubated. Lactic acid was elevated and BUN creatinine are elevated consistent with acute renal injury. A central line was placed. Patient will need ICU admission for supportive care and further workup. Critical Care Note Critical Care Time?: No Stability Stability form required: No Heart Score Heart Score: Heart Score Response (Comments) Value History N/A 0 EKG N/A 0 Age N/A 0 Risk Factors N/A 0 Troponin N/A 0 Total 0 I personally scribed for HANY HAIR MD ([email or web address]) on 03/10/25 at 19:43. Electronically submitted by Refugio Hupmhrey ([email or web address]). I personally scribed for HANY HAIR MD ([email or web address]) on 03/10/25 at 23:58. Electronically submitted by Refugio Humphrey ([email or web address]). HANY HAIR MD Mar 10, 2025 19:43
[2025-03-10 20:31] LABS: Hematocrit 25.7 % (41.0-53.0); Hemoglobin 8.6 g/dL (13.5-17.5); Mean Corpuscular Hemoglobin 32.9 pg (28.0-32.0); Mean Corpuscular Volume 98.3 fL (80.0-100.0); Nucleated Red Blood Cells % 0.2 %
[2025-03-10] MEDS: SODIUM CHLORIDE 0.9% 1,000 ML IVB ONE (20:37)
[2025-03-10 20:52] LABS: Anion Gap 13 (5-15); BUN/Creatinine Ratio 13.6 (10.0-20.0); Bilirubin, Total 0.7 mg/dL (0.2-1.0); Carbon Dioxide 21 mmol/L (20-31); Lipase 41 U/L (12-53); Potassium 3.7 mmol/L (3.5-5.1); Sodium 142 mmol/L (136-145); Total Protein 6.6 g/dL (5.7-8.2)
[2025-03-10 20:53] LABS: Alanine Aminotransferase 467 U/L (7-40); Albumin 2.8 g/dL (3.2-4.8); Alkaline Phosphatase 178 U/L (46-116); Blood Urea Nitrogen 24 mg/dL (9-23); Calcium 8.7 mg/dL (8.7-10.4); Chloride 108 mmol/L (98-107); Glucose 245 mg/dL (74-106)
[2025-03-10 20:58] LABS: Lactic Acid w/Reflex 5.4 mmol/L (0.4-2.0)
[2025-03-10] MEDS: SODIUM CHLORIDE 0.9% 1,000 ML IV ONE ×2 (21:35→23:58)
[2025-03-10] MEDS: ONDANSETRON HCL 4 MG/2 ML VIAL IV ONE (21:41)
[2025-03-10] MEDS: HYDROmorphone HCL 2 MG/ML VL/or syr IV ONE (21:41)
[2025-03-10] MEDS: ALBUMIN 25% 100 ML IV ONE (22:11)
--- NOTE | 2025-03-10 22:26 | ECG ---
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
[2025-03-10] MEDS: PIPERACILLIN-TAZOB 3.375GM 100 ML IV ONE (22:55)
[2025-03-10] MEDS ORDERED: NOREPINEPHRINE 8 MG/250ML KIT 250 ML IV SCH (23:45)
--- NOTE | 2025-03-10 23:45 | DVH ---
CLINICAL HISTORY: abd pain , swelling TECHNIQUE: CT of the abdomen and pelvis was performed without intravenous contrast. This exam was per formed according to our departmental dose optimization program. Up-to-date CT equipment and radiation dose reduction techniques are utilized as appropriate. 5.5 CTDI: 5.5 DLP: 319.9 WID: COMPARISON: CT CT AB PELVIS W WO CON-IV ONLY on DOS: 02/13/25 FINDINGS: Lower Thorax: There is emphysema in the lung bases. There is a soft tissue nodule in the right middle lobe measuring 5.6 mm on series 3, image 7. Upper limits of normal-sized heart. Small pericardial fl uid. Moderate aortic valve calcifications. At least mild coronary artery calcifications. Liver and Biliary system: Cirrhotic liver. There is a large mass occupying predominantly left lobe of the liver.. Cholelithiasis in a normal caliber gallbladder. Portosystemic collateral vessels. Spleen: There is mild splenomegaly. There is moderate mixed density fluid surrounding the spleen as w ell as extending into the peritoneum most pronounced along the undersurface of the liver (which is hi gh density). Adrenal Glands and Kidneys: Normal adrenal glands. Slightly small bilateral kidneys. There is a exop hytic interpolar right renal cyst. Additional hypodense bilateral renal lesions are likely cysts alth ough not optimally evaluated without contrast. No hydronephrosis or nephrolithiasis. Pancreas and Retroperitoneum: Mildly atrophic pancreas. No retroperitoneal lymphadenopathy. Aorta and Major Vessels: Aortoiliac vessels are normal in caliber with moderate calcified atheroscler otic plaque. Bowel, Mesentery and Peritoneal space: Normal caliber small and large bowel. Moderate ascites in the abdomen which is intermediate density. There is no free air or fluid collection. Pelvis: Urinary bladder is minimally distended. The prostate contains a dystrophic calcification. Th ere is no pelvic lymphadenopathy. Abdominal wall and Osseous Structures: Mild lower thoracic and lumbar spondylosis. No destructive oss eous lesion. IMPRESSION: 1. Moderate mixed echogenicity fluid surrounding the spleen which is high density, including high den sity fluid extending along the undersurface of the liver likely reflecting hemorrhage. Evaluation for active hemorrhage is limited on this noncontrast exam, though is a concern. Consider obtaining CTA a bdomen to further evaluate this finding. 2. Moderate hemoperitoneum. 3. Cirrhotic liver and a hypodense large mass occupying the left lobe of the liver. 4. Cholelithiasis. 5. There is a 6 mm soft tissue nodule in the right middle lobe, nonspecific. Attention on follow-up imaging recommended. 6. Emphysema. 7. Moderate aortic valve calcifications and at least mild calcified coronary artery disease. Critical Result: Hemoperitoneum, possible active bleeding not optimally evaluated on noncontrast stud y, CTA recommended Findings discussed with HANY HAIR at 03/10/2025 11:40 PM, and acknowledged receipt and understa nding of the findings. ..
[2025-03-10] MEDS: ETOMIDATE (2MG/ML) 20ML VIAL IV ONE (23:58)
[2025-03-11] VITALS (99 sets, daily range): BP systolic 73–182; BP diastolic 32–93; PULSE 88–138; RESP 20–36; TEMP 89.4–98.1; O2SAT 88–100
[2025-03-11] MEDS ORDERED: ETOMIDATE (2MG/ML) 20ML VIAL IV ONE
[2025-03-11] MEDS: NOREPINEPHRINE 8 MG/250ML KIT 250 ML IV SCH (00:03)
[2025-03-11] MEDS: MIDAZOLAM DRIP 50 mg/50mL 50 ML IV SCH (00:08)
[2025-03-11] MEDS: SODIUM BICARB 8.4% 50Meq/50ml SYR Vial IV ONE ×4 (00:14→12:05)
[2025-03-11] MEDS: SODIUM CHLORIDE 0.9% 1,000 ML IV ONE ×3 (00:15→12:51)
[2025-03-11 00:19] LABS: INR 1.24 (0.9-1.15); Partial Thromboplastin Time 30.9 SEC (24.5-34.5); Prothrombin Time 12.9 sec (9.3-11.8)
[2025-03-11 00:51] LABS: Hematocrit 10.6 % (41.0-53.0)
[2025-03-11 00:54] LABS: Hemoglobin 3.2 g/dL (13.5-17.5)
[2025-03-11] MEDS: ROCURONIUM 10MG/ML 10ML VIAL IV ONE (00:55)
[2025-03-11] MEDS: ETOMIDATE (2MG/ML) 20ML VIAL IV ONE (00:55)
[2025-03-11] MEDS: MIDAZOLAM DRIP 50 mg/50mL 50 ML IV ONE (00:57)
[2025-03-11] MEDS: SODIUM BICARB 8.4% 50Meq/50ml SYR INJ ONE (00:59)
[2025-03-11] MEDS ORDERED: ONDANSETRON HCL 4 MG/2 ML VIAL IV PRN (01:00)
[2025-03-11] MEDS ORDERED: MORPHINE SULFATE INJ 2 MG/ml SYRG IV PRN (01:00)
--- NOTE | 2025-03-11 01:03 | DVHHPRES ---
History of Present Illness Resident Creating Document: SARAHY STARR RESIDENT History of Present Illness Varghese Lewis is a 69-year-old male patient who presents to the ED with chief complaint of abdominal pain and generalized weakness. Per EMR notes patient reports completing liver biopsy approximately three weeks ago due to suspected hepatocellular carcinoma, planning on seeing liver specialist once biopsy was reported. Patient started with symptoms of proximally two days before his admission, prompting his visit to the ER. When evaluated the patient in the ED, he presented altered mentation, diaphoresis, severe hypotension not refractory to IV fluids, completed abdomen and pelvis CT which showed hemoperitoneum. Patient required emergent endotracheal intubation in central line placement, 3 units of PRBCs, one of platelets and one of fresh frozen plasma. On my assessment could not obtain review of systems, obtained all information from EMR and son who is at bedside. Past medical history: Hypertension, dyslipidemia, normocytic anemia, hepatic cancer (per EMR hepatocellular carcinoma) status post biopsy three weeks ago, alcoholic/hepatitis-B liver cirrhosis with thrombocytopenia. Surgical history: Liver biopsy three weeks ago Family history: Unknown Social history: Ex alcohol and tobacco abuse quit two years ago. Denies current tobacco, alcohol and other drug abuse. Allergies: Denies Home medication: Hydrocodone Patient seen and examined at bedside. Currently in ICU status due to mechanical assisted ventilation, on IV vasopressors and requiring multiple blood product transfusion. Patient's critical. Admitted to ICU and contacted surgical elastic knitter who recommends higher level of care. Past Medical History Per HPI Past Surgical History Per HPI Family History Per HPI Past Social History Per HPI Review of Systems Review of Systems Per HPI Allergies: Coded Allergies: NO KNOWN ALLERGIES (Unverified , 02/07/25) Medications Current Medications Medications Dose Ordered Sig/Alpa Route Start Time Stop Time Status Last Admin Dose Admin Norepinephrine Bitartrate 250 ml @ 3.75 mls/hr Q24H IV 03/10/25 23:45 03/11/25 00:03 3.75 MLS/HR Midazolam HCl 50 ml @ 1 mls/hr Q24H IV 03/11/25 00:00 03/11/25 00:08 1 MLS/HR Octreotide Acetate 500 mcg/ Sodium Chloride 100 ml @ 10 mls/hr Q10H IV 03/11/25 00:30 Exam Vital Signs Vital Signs Date Time Temp Pulse Resp B/P (MAP) Pulse Ox O2 Delivery O2 Flow Rate FiO2 03/11/25 00:08 90/60 03/11/25 00:05 88 18 100 100 03/10/25 19:40 Nasal Cannula* 2 03/10/25 19:33 97.6 97.6 Exam Patient lying in bed, under mild sedoanalgesia due to mechanical ventilation General: RASS -5, afebrile (hypothermia), mucosae are dry and pale, conjunctivae is pale Cardiovascular: Normal S1 and S2. No murmurs, gallops or rubs Respiratory: Mechanically assisted ventilation, equal bilateral airway entree. Clear lung sounds on auscultation Abdomen: Distended, dull to percussion, no organomegaly can be evaluated due to abdominal distention, absent bowel sounds MSK/skin: Mobilization of limbs cannot be evaluated. Skin is dry and cold Neurological: Orientation cannot be assessed. No apparent motor no sensitive deficits. Pupils are isocoric and reactive Labs/Xrays Labs Test 03/11/25 00:30 03/10/25 22:14 03/10/25 20:14 Range/Units Hemoglobin 3.2 #*L 13.5-17.5 g/dL Hematocrit 10.6 #L 41.0-53.0 % Reticulocyte Count (auto) 4.31 H 0.5-1.5 % Lactic Acid Level 7.1 *H 0.4-2.0 mmol/L White Blood Count 10.5 4.4-10.8 10^3/uL Red Blood Count 2.61 L 4.5-5.90 10^6/uL Mean Corpuscular Volume 98.3 80.0-100.0 fL Mean Corpuscular Hemoglobin 32.9 H 28.0-32.0 pg Mean Corpuscular Hemoglobin Concent 33.5 32.0-36.0 g/dL Red Cell Distribution Width 17.4 H 11.8-14.3 % Platelet Count 150 140-450 10^3/uL Mean Platelet Volume 9.5 6.9-10.8 fL Neutrophils (%) (Auto) 61.9 37.0-80.0 % Lymphocytes (%) (Auto) 27.9 10.0-50.0 % Monocytes (%) (Auto) 7.0 0.0-12.0 % Eosinophils (%) (Auto) 2.3 0.0-7.0 % Basophils (%) (Auto) 0.9 0.0-2.0 % Neutrophils # (Auto) 6.5 1.6-8.6 10 ^3/uL Lymphocytes # (Auto) 2.9 0.4-5.4 10 ^3/uL Monocytes # (Auto) 0.7 0-1.3 10 ^3/uL Eosinophils # (Auto) 0.2 0-0.8 10 ^3/uL Basophils # (Auto) 0.1 0-0.2 10 ^3/uL Nucleated Red Blood Cells 0.2 % Prothrombin Time 12.9 H 9.3-11.8 sec Prothrombin Time INR 1.24 H 0.9-1.15 Activated Partial Thromboplast Time 30.9 24.5-34.5 SEC Sodium Level 142 136-145 mmol/L Potassium Level 3.7 3.5-5.1 mmol/L Chloride Level 108 H 98-107 mmol/L Carbon Dioxide Level 21 20-31 mmol/L Anion Gap 13 5-15 Blood Urea Nitrogen 24 H 9-23 mg/dL Creatinine 1.76 H 0.700-1.30 mg/dL Glomerular Filtration Rate Calc 42 >90 mL/min BUN/Creatinine Ratio 13.6 10.0-20.0 Serum Glucose 245 H 74-106 mg/dL Calcium Level 8.7 8.7-10.4 mg/dL Total Bilirubin 0.7 0.2-1.0 mg/dL Aspartate Amino Transferase (AST) 381 H 13-40 U/L Alanine Aminotransferase (ALT) 467 H 7-40 U/L Alkaline Phosphatase 178 H 46-116 U/L Total Protein 6.6 5.7-8.2 g/dL Albumin 2.8 L 3.2-4.8 g/dL Lipase 41 12-53 U/L SEPSIS Sepsis Screen Date sepsis recognized/suspect: Mar 10, 2025 Time Sepsis recognized/suspect: 1919 Recent Procedure: No On Antibiotic Therapy: No Respiratory Rate >20: No Heart Rate >90: No Temp<36 C (96.8 F) or >38.3 C: No SBP <90 or MAP <65 mmHG: Yes New Acute Mental Status Change: No Is the patient on CPAP, BIPAP,: No Physician Orders Urinalysis (03/10/25 19:30) Ct Ab Pel Wo Con-No Oral Or Iv (03/10/25 19:37) Blood Culture (03/10/25 19:37) Norepinephrine 8 Mg/250ml Kit (Levophed) (03/10/25 23:45) Type And Screen (03/10/25:42) Packedcells -Active Bleeding (03/10/25 23:42) Midazolam Drip 50 Mg/50ml (Versed Drip 5 (03/11/25 00:00) Rass Sedation Scale Q1HR (03/10/25:53) Communication Order (03/10/25:53) Ventilator Orders (03/11/25 00:02) Respiratory Culture W/ Gs (03/11/25 00:10) Abg W/ Co-Ox (03/11/25 00:05) Venous Blood Gas (03/11/25 00:14) Packedcells -Active Bleeding (03/11/25 00:12) Iron Panel (03/11/25 00:12) Ferritin (03/11/25 00:12) Lactate Dehydrogenase (03/11/25 00:12) Sodium Chloride 0.9% (03/11/25 00:15) Sodium Chl 0.9% (So... W/Octreotide Acet (03/11/25 00:30) Chest Xray 1 View (03/11/25 00:38) Communication Order (03/11/25 00:00) Rocuronium [place] (03/11/25 23:50) Ct Ab Pel With Iv Con Only (03/11/25 00:52) PTPTT (03/11/25 00:57) Pheresis Platelets (03/11/25 00:57) Frozen Plasma (03/11/25 00:57) Complete Blood Count (03/11/25 00:57) Admit (03/11/25 01:00) Code Status (03/11/25 01:00) Ondansetron Hcl (Zofran) (03/11/25 01:00) Npo (Nothing By Mouth) Diet (03/11/25 Breakfast) Echo 2d Mode Cardiac Dop (03/11/25 01:00) Morphine Sulfate Injection (03/11/25 01:00) Oxygen By Nasal Cannula (03/11/25 01:00) Stat Ekg For Chest Pain (03/11/25 01:00) Notify Of Changes From Base (03/11/25 01:00) Linen Room Attendant For 24 Hours (03/11/25 01:00) Emergency Dysrhythmia Protocol (03/11/25 01:00) Rhythm Strips Once Every Shift (03/11/25 01:00) Vital Signs Date Time Temp Pulse Resp B/P (MAP) Pulse Ox O2 Delivery O2 Flow Rate FiO2 03/11/25 00:08 90/60 03/11/25 00:05 88 18 84/65 (71) 100 100 03/11/25 00:03 85/56 03/10/25 22:25 75 03/10/25 21:41 75 18 145/115 03/10/25 19:40 Nasal Cannula* 2 28 03/10/25 19:33 97.6 60 16 81/47 95 97.6 03/10/25 19:21 61 Laboratory Tests Test 03/10/25 20:14 03/10/25 22:14 Lactic Acid Level 5.4 mmol/L (0.4-2.0) *H 7.1 mmol/L (0.4-2.0) *H White Blood Count 10.5 10^3/uL (4.4-10.8) Medications Medications Dose Ordered Sig/Alpa Route Start Time Stop Time Status Last Admin Dose Admin Albumin Human 100 ml @ 100 mls/hr ONCE ONCE IV 03/10/25 21:15 03/10/25 22:14 DC 03/10/25 22:11 100 MLS/HR Etomidate 5 mg ONCE ONCE IV 03/11/25 00:00 03/11/25 00:01 DC 03/10/25 23:58 5 MG Hydromorphone HCl 0.5 mg ONCE ONCE IV 03/10/25 20:30 03/10/25 20:31 DC 03/10/25 21:41 0.5 MG Metronidazole 100 ml @ 100 mls/hr ONCE ONCE IV 03/10/25 22:00 03/10/25 22:59 DC 03/10/25 22:18 100 MLS/HR Midazolam HCl 50 ml @ 1 mls/hr Q24H IV 03/11/25 00:00 03/11/25 00:08 1 MLS/HR Norepinephrine Bitartrate 250 ml @ 3.75 mls/hr Q24H IV 03/10/25 23:45 03/11/25 00:03 3.75 MLS/HR Ondansetron HCl 4 mg ONCE ONCE IV 03/10/25 20:30 03/10/25 20:31 DC 03/10/25 21:41 4 MG Piperacillin Sod/ Tazobactam Sod 100 ml @ 100 mls/hr ONCE ONCE IV 03/10/25 22:00 03/10/25 22:59 DC 03/10/25 22:55 100 MLS/HR Sodium Bicarbonate 100 ml ONCE ONCE IV 03/11/25 00:15 03/11/25 00:26 DC 03/11/25 00:14 100 ML Sodium Chloride 1,000 ml @ 1,000 mls/hr Q1H ONCE IV 03/10/25 21:15 03/10/25 22:14 DC 03/10/25 21:35 1,000 MLS/HR Sodium Chloride 1,000 ml @ 1,000 mls/hr Q1H ONCE IV 03/10/25 23:45 03/11/25 00:44 DC 03/10/25 23:58 1,000 MLS/HR Sodium Chloride 1,000 ml @ 1,000 mls/hr Q1H ONCE IV 03/11/25 00:15 03/11/25 01:14 03/11/25 00:15 1,000 MLS/HR Sodium Chloride 1,000 ml @ 1,000 mls/hr Q1H ONCE IVB 03/10/25 19:45 03/10/25 20:44 DC 03/10/25 20:37 1,000 MLS/HR Assessment/Plan Assessment/Plan Hypovolemic shock Hemoperitoneum secondary to splenic bleeding Liver cirrhosis secondary hepatitis-B/ethanol Probable hepatocellular carcinoma Questionable GI bleed Severe anemia status post multiple blood product transfusion Coagulopathy Transaminitis Cholelithiasis Sepsis secondary to above Patient required emergent endotracheal intubation, placement of central line, IV vasopressors, multiple blood product transfusion (3 units of PRBCs, one of platelets, one of fresh-frozen plasma), IV fluids, IV antibiotics (Zosyn) and pantoprazole/octreotide drip. Completed abdomen and pelvis CT with and without contrast: Splenic hemorrhage, moderate hemoperitoneum, cirrhotic liver with large mass occupying left lobe of liver, cholelithiasis, study with contrast shows active hemorrhage within the spleen with subcapsular hematoma. With large volume ascites Avoid NG/OG tube due to unknown esophageal varices. Patient is with strict NPO CBC Q 4 hours Ordered pancultures (blood, urine, sputum) Consulted surgical elastic knitter who recommended higher level of care. Consulted social service manager for transferred to higher level of care Avoid blood thinners, on SCDs Consulted GI specialist course for supportive care until higher level of care is completed Metabolic acidosis with increased anion gap Hyperlacticacidemia CEDRIC hemodynamically mediated (VMN) Hyperkalemia Indicated bicarbonate push, evaluate bicarbonate drip Replenishing volume with blood products and IV fluids Avoid lactic ringer due to hyperkalemia Have explained to son patient may end up with requirement of hemodialysis, patient understands risks and agrees with completing CT with contrast. Consulted Nephrology specialist Hypertension Dyslipidemia Discontinue home medication due to shock. History of polysubstance abuse Per son patient has quit alcohol and tobacco for a proximally two years. Ordered UDS and ethanol in blood Goals of care discussed with son Sage) for over 26 minutes: Full code status Discussed plan with Dr. Silverio, patient and nurses: Patient admitted to ICU. Hypovolemic shock secondary to hemiparesis peroneum due to splenic bleeding inpatient with liver cirrhosis secondary to hepatitis-B/ethanol abuse with recent diagnosis of hepatocellular carcinoma. Required emergent endotracheal intubation, IV fluid resuscitation, multiple blood product transfusion, IV vasopressors, empiric IV antibiotics and pantoprazole/octreotide drip. Consulted surgical elastic knitter who recommends splenectomy in higher level of care due to comorbidities and high mortality risk. Patient has critical prognosis. Plan discussed with: Son (Joseph (NOK)), Other (Nurses) My Orders Orders - SARAHY STARR RESIDENT Procedure Category Date Status Time Ventilator Orders RT 03/11/25 Transmitted 00:02 Respiratory Culture KATY 03/11/25 Logged W/ Gs 00:10 Abg W/ Co-Ox RT 03/11/25 Logged 00:05 Venous Blood Gas RT 03/11/25 Logged 00:14 Communication Order ORDERS 03/11/25 Transmitted 00:00 Rocuronium [place]riot PHA 03/11/25 Logged 23:50 PTPTT LAB 03/11/25 Logged 00:57 Pheresis Platelets BBK 03/11/25 Logged 00:57 Frozen Plasma BBK 03/11/25 Logged 00:57 Complete Blood Count LAB 03/11/25 Logged 00:57 Admit ADMIT 03/11/25 Transmitted 01:00 Code Status CODE 03/11/25 Transmitted 01:00 Ondansetron Hcl PHA 03/11/25 Transmitted (Zofran) 01:00 Npo (Nothing By DIET 03/11/25 Transmitted Mouth) Diet Breakfast Echo 2d Mode Cardiac US 03/11/25 Logged DOP 01:00 Morphine Sulfate PHA 03/11/25 Transmitted Injection 01:00 Oxygen By Nasal RT 03/11/25 Transmitted Cannula 01:00 Stat Ekg For Chest [facility] 03/11/25 In Process Pain 01:00 Notify Md Of Changes [facility] 03/11/25 In Process From Base 01:00 Linen Room Attendant For [facility] 03/11/25 Transmitted 24 Hours 01:00 Emergency Dysrhythmia [facility] 03/11/25 Transmitted Protocol 01:00 Rhythm Strips Once [facility] 03/11/25 In Process Every Shift 01:00 Date of Service: Mar 11, 2025 Billing Provider: MORALES SILVERIO MD Common Visit Codes: 83591-[id number] INP/OBS CARE (HIGH) Secondary Visit Codes: [id number] CARE PLAN 30 MINUTES SARAHY STARR RESIDENT Mar 11, 2025 01:03
[2025-03-11 01:09] LABS: Iron 61.0 ug/dL (65-175)
[2025-03-11 01:14] LABS: Total Iron Binding Capacity 172.0 ug/dL (250-425)
--- NOTE | 2025-03-11 01:14 | DVH ---
CHEST RADIOGRAPH Indication: Line placement and intubation Technique: Single frontal view of the chest was obtained COMPARISON: XY CHEST PORTABLE on DOS: 02/07/25 FINDINGS: Lines and Tubes: Endotracheal tube tip projects approximately 2.9 cm above the level of the emre. R ight internal jugular central venous catheter tip projects over the cavoatrial junction. Lungs: Clear Pleura: No effusion. No pneumothorax. Cardiomediastinal contours: Unremarkable Bones: Unremarkable IMPRESSION: 1. Endotracheal tube and right internal jugular central venous catheter in appropriate position. 2. No evidence of acute cardiopulmonary process.
[2025-03-11] MEDS: IOHEXOL 350 MG/ML 100ML IJ ONE (01:27)
[2025-03-11] MEDS: PANTOPRAZOLE 40 MG/10 ML VIAL INJ IV ONE (02:54)
--- NOTE | 2025-03-11 03:02 | DVH ---
Exam: CT CT AB PEL WITH IV CON ONLY History: hemoperitoneum, abd pain COMPARISON: CT CT AB PELVIS W WO CON-IV ONLY on DOS: 02/13/25 Technique: Multidetector spiral CT of the abdomen and pelvis was performed from lung bases to pubic s ymphysis. Intravenous contrast was administered during this examination. Portal venous imaging was o btained. Axial, coronal and sagittal multiplanar reformats were performed by the technologist on a [employer] workstation. Radiation Dose : 1. Abdomen/Pelvis: CTDIvol 5.59 mGy, DLP 3.92 mGy*cm. CONTRAST: Type of contrast: Omnipaque 350 Contrast injected: 100 ml Findings: Lung Bases: No acute or significant lung base finding. Moderate posterior bibasilar atelectasis. Nor mal heart size. No pleural or pericardial effusion. Liver: Cirrhotic hepatic morphology and stable appearing mass occupying predominantly the left lobe o f the liver measuring a proximally 15.7 x 8.1 cm. Portosystemic collateral vessels redemonstrated. Gallbladder and Biliary Tree: Cholelithiasis. Spleen: Enlarged, measuring 16.7 cm in craniocaudal dimension. Mixed predominantly hyperattenuating d ensity material surrounding the spleen consistent with subcapsular hematoma. Irregular hyperdense foc us within the superior aspect of the spleen, the largest focal component of which measures 2.4 x 1.0 cm consistent with active extravasation of contrast material indicating active hemorrhage. Pancreas: The pancreas is normal in appearance without focal lesions or abnormal enhancement. Adrenal Glands: Unremarkable Kidneys: Mild bilateral renal atrophy. Right renal cortical cysts measure up to 3.5 cm. No evidenc e of hydronephrosis or nephrolithiasis. Bladder: Unremarkable Bowel: The stomach is grossly normal in appearance. Small bowel and colon are normal in caliber and d istribution. The appendix is not visualized; however, no secondary findings of acute appendicitis kannan ntified. Ascites: Large volume abdominopelvic ascites with hyperdense character immediately inferiorly adjacen t to the spleen. Lymphadenopathy: No mesenteric, retroperitoneal or periportal lymphadenopathy. Abdominal Wall and Mesentery: Unremarkable. Vasculature: The visualized abdominal aorta is moderately ectatic and otherwise normal in size and ca liber. Mixed calcified and noncalcified atheromatous plaque throughout the abdominal aorta and origin s of the major branching vessels. Abdominal and pelvic vessels demonstrate normal enhancement. Pelvic Organs: Unremarkable Musculoskeletal: No aggressive focal bony lesions, acute fractures or dislocation. IMPRESSION: 1. Findings consistent with active hemorrhage within the spleen with subcapsular hematoma. 2. Cirrhotic hepatic morphology with stable appearing mass occupying predominantly the left lobe of t he liver. 3. Large volume abdominopelvic ascites and focal hemoperitoneum inferiorly adjacent to the spleen. Critical Result: Active extravasation of contrast material consistent with splenic hemorrhage and act adrian bleeding Findings discussed with HANY HAIR at 03/11/2025 05:58 AM EST, and acknowledged receipt and unde rstanding of the findings. Radiation optimization: All CT scans at this facility use at least one of these dose optimization te chniques: automated exposure control mA and/or kV adjustment per patient size (includes targeted exa ms where dose is matched to clinical indication) or iterative reconstruction.
[2025-03-11] MEDS: OCTREOTIDE ACETATE 100 MCG/ML VL ONE (03:05)
[2025-03-11] MEDS: OCTREOTIDE ACETATE 500 MCG in SODIUM CHL 0.9% 99 ML IV SCH (03:13)
[2025-03-11] MEDS: OCTREOTIDE ACETATE 100 MCG in SODIUM CHL 0.9% 50 ML IV ONE (03:13)
[2025-03-11 04:34] LABS: Urine Protein, UAD 1+ (Negative)
[2025-03-11] MEDS: PANTOPRAZOLE 40mg/50ML NS AE 50 ML IV SCH (04:41)
[2025-03-11] MEDS ORDERED: VASOPRESSIN 40 UNITS in D5W 5% 198 ML IV SCH (04:45)
[2025-03-11] MEDS: VASOPRESSIN 20 UNITS in SODIUM CHL 0.9% 99 ML IV SCH (05:13)
[2025-03-11] MEDS: PIPERACILLIN-TAZOB 3.375GM 100 ML IV SCH (06:14)
[2025-03-11] MEDS: SODIUM CHLORIDE 0.9% 1,000 ML IV SCH (06:34)
[2025-03-11 07:16] LABS: Hematocrit 29.3 % (41.0-53.0); Hemoglobin 9.2 g/dL (13.5-17.5)
[2025-03-11 07:18] LABS: Mean Corpuscular Hemoglobin 29.2 pg (28.0-32.0); Mean Corpuscular Volume 93.0 fL (80.0-100.0); Nucleated Red Blood Cells % 0.5 %
[2025-03-11 07:30] LABS: Alkaline Phosphatase 102 U/L (46-116); Anion Gap 18 (5-15); BUN/Creatinine Ratio 11.5 (10.0-20.0); Blood Urea Nitrogen 21 mg/dL (9-23); Glucose 94 mg/dL (74-106); Magnesium 2.2 mg/dL (1.6-2.6)
[2025-03-11 07:31] LABS: Alanine Aminotransferase 812 U/L (7-40); Albumin 2.1 g/dL (3.2-4.8); Bilirubin, Total 0.8 mg/dL (0.2-1.0); Calcium 6.5 mg/dL (8.7-10.4); Carbon Dioxide 12 mmol/L (20-31); Chloride 118 mmol/L (98-107); Lipase 210 U/L (12-53); Sodium 148 mmol/L (136-145); Total Protein 4.0 g/dL (5.7-8.2)
[2025-03-11 07:33] LABS: Potassium 6.5 mmol/L (3.5-5.1)
[2025-03-11 07:39] LABS: Lactic Acid w/Reflex 11.8 mmol/L (0.4-2.0)
[2025-03-11 07:47] LABS: Base Excess -20.8 mmol/L (-2.0-3.0)
[2025-03-11 08:22] LABS: Prothrombin Time 23.0 sec (9.3-11.8)
[2025-03-11 08:23] LABS: Partial Thromboplastin Time 69.9 SEC (24.5-34.5)
[2025-03-11 08:26] LABS: Triglycerides 85 mg/dL (< 150)
[2025-03-11 08:28] LABS: Cholesterol 51 mg/dL (< 200); INR 2.31 (0.9-1.15)
[2025-03-11 08:29] LABS: HDL Cholesterol 12 mg/dL (40-59)
--- NOTE | 2025-03-11 09:47 | ECG ---
[facility] Test Date: 2025-03-11 Test Time: 09:44:12 Pat Name: JOSETTE VILLELA Department: ICU Room: [address] [place] [address] A Gender: M Tool Repairer: : [id number] Requested By: SARAHY STARR Order Number: [id number] Reading MD: Horacio Araujo Measurements Intervals [place] Rate: 113 P: 33 SC: 130 QRS: 23 QRSD: 94 T: 33 QT: 342 QTc: 469 Interpretive Statements Sinus tachycardia Electronically Signed On 03-11-2025 17:37:14 PDT by Horacio Araujo Please click the below link to view image of tracing.
[2025-03-11] MEDS: SODIUM BICARB 8.4% 50Meq/50ml SYR INJ IV ONE (09:49)
[2025-03-11] MEDS: CALCIUM GLUC 1,000mg/50ml-NS 50 ML IV ONE (09:57)
[2025-03-11] MEDS: DEXTROSE (50%) 50ML SYRG IV ONE (09:57)
[2025-03-11] MEDS: ALBUTEROL SULF 2.5 MG/0.5ML(0.5%) NEB SOLN NEB ONE (09:57)
[2025-03-11] MEDS: InsuLIN REG 1unit/0.01ml Soln (100units/ml) IV ONE (10:09)
[2025-03-11 10:26] LABS: Benzodiazephine Screen, Urine Pos (NEGATIVE)
[2025-03-11 10:27] LABS: Opiate Scree,Urine Neg (NEGATIVE)
[2025-03-11] MEDS ORDERED: VANCOMYCIN PER PHARMACY 0 MG IV SCH (10:30)
[2025-03-11 10:33] LABS: Base Excess -13.6 mmol/L (-2.0-3.0)
[2025-03-11 10:34] LABS: Amphetamine Screen, Urine Neg (NEGATIVE); Barbiturate Scree,Urine Neg (NEGATIVE); Cannabinoid Screen, Urine Neg (NEGATIVE); Cocaine Screen, Urine Neg (NEGATIVE); Phencyclidine Screen, Urine Neg (NEGATIVE)
--- NOTE | 2025-03-11 11:10 | DVHINCON2 ---
Date of service: Mar 11, 2025 Referring Physician Yvonne Whitt MD Reason for Consultation Acute kidney injury History of Present Illness Mr. Lewis is a 69-year-old male with presentation in the hospital several-day history of abdominal discomfort and generalized weakness. His clinical course has been notable for fulminant decline, requiring vasopressor therapy, respiratory failure requiring intubation, mechanical ventilatory support. Current working diagnosis of shock, related to acute blood loss identified within the spleen. CT scan notable for significant hemoperitoneum. He is seen in the intensive care unit, urine volumes are oligo-anuric, he is on numerous vasopressors. He has received IV fluid challenge with normal saline, he has received packed RBC transfusions, and intravenous bicarbonate therapy. All the history was obtained through the chart. Currently there are plans for possible transfer to higher level of care. Past Medical History Hypertension Dyslipidemia Reported hepatocellular carcinoma History of cirrhosis Past Surgical History Recent liver biopsy Allergies: Coded Allergies: NO KNOWN ALLERGIES (Unverified , 02/07/25) Home Meds Active Scripts Hydrocodone-Acetaminophen (Hydrocodone Bitartrate/AC 5-325 mg) 1 Tab Tab, 1 TAB PO Q4HPRN PRN, #30 TAB Prov:ALIZE OROZCO MD 02/16/25 Current Medications Current Medications Medications (Trade) Dose Ordered Sig/Alpa Route PRN Reason Start Time Stop Time Status Last Admin Norepinephrine Bitartrate 250 ml @ 3.75 mls/hr Q24H IV 03/10/25 23:45 03/11/25 04:41 Norepinephrine Bitartrate 250 ml @ 3.75 mls/hr Q24H IV 03/10/25 23:45 03/11/25 00:28 DC Midazolam HCl 50 ml @ 1 mls/hr Q24H IV 03/11/25 00:00 03/11/25 00:08 Octreotide Acetate 500 mcg/ Sodium Chloride 100 ml @ 10 mls/hr Q10H IV 03/11/25 00:30 03/11/25 09:35 Ondansetron HCl (Zofran) 4 mg Q4HP PRN IV NAUSEA / VOMITING 03/11/25 01:00 Morphine Sulfate 2 mg Q4HPRN PRN IV SEVERE PAIN (7-10 PAIN SCALE) 03/11/25 01:00 03/11/25 05:03 DC Pantoprazole Sodium 50 ml @ 10 mls/hr Q5H IV 03/11/25 04:15 03/11/25 06:40 Piperacillin Sod/ Tazobactam Sod 100 ml @ 25 mls/hr Q8HR IV 03/11/25 06:00 03/11/25 06:14 Sodium Chloride 1,000 ml @ 60 mls/hr [id number] IV 03/11/25 04:45 03/11/25 06:34 Vasopressin 40 units/Dextrose 200 ml @ 60 mls/hr Q3H20M IV 03/11/25 04:45 03/11/25 05:14 DC Vasopressin 20 units/Sodium Chloride 100 ml @ 9 mls/hr Q11H7M IV 03/11/25 05:00 03/11/25 05:13 Vancomycin HCl 0 ml @ 0 mls/hr UD IV 03/11/25 10:30 UNV Family History: Patient reports no known family medical history. Review of Systems Unable to be obtained due to patient's critical status H&P Exam Vital Signs/I&O Vital Sign Date Time Temp Pulse Resp B/P (MAP) Pulse Ox O2 Delivery O2 Flow Rate FiO2 03/11/25 10:30 95.6 135 22 115/65 95.6 03/11/25 10:15 99 03/11/25 09:57 50 03/11/25 08:00 Mechanical Ventilator+ 03/10/25 19:40 2 Intake and Output 03/10/25 03/11/25 19:00 07:00 Intake Total 5153.25 ml Output Total 75 ml Balance 5078.25 ml Intake IV Total 3753.25 ml Blood Product 1100 ml Other 300 ml Output Urine Total 75 ml Physical Exam Gen: Intubated, sedated, tachypneic heent: Positive ET tube lungs: Occasional coarse breath sounds cvs: Tachycardic abd: Bowel sounds diminished, distention ext: no edema skin: no rash neuro: Sedated Labs/Diagnostic Data Labs/Diagnostic Data Laboratory Tests Test 03/11/25 10:15 03/11/25 07:16 03/11/25 07:00 03/11/25 03:14 Range/Units Blood Gas Specimen Type Arterial Arterial Blood Gas Sample Site Left radial Left radial Blood Gas Patient Temperature 37.0 37.0 Arterial Blood Date Drawn [id number] Arterial Blood pH 7.050 *L 7.037 *L 7.350-7.450 Arterial Blood Partial Pressure CO2 59.4 H 32.9 L 35.0-48.0 mmHg Arterial Blood Partial Pressure O2 125.8 H 368.9 *H 83.0-108.0 mmHg Arterial Blood HCO3 16.1 L 8.6 L 21.0-28.0 mmol/L Arterial Blood Oxygen Saturation 96.7 99.0 H 94.0-98.0 % Arterial Blood Base Excess -13.6 L -20.8 L -2.0-3.0 mmol/L Arterial Blood Oxyhemoglobin 95.4 98.2 H 94.0-98.0 % Arterial Blood Carboxyhemoglobin 0.2 L 0.2 L 0.5-1.5 % Arterial Blood Methemoglobin 1.1 0.6 0.0-1.5 % Johan Test Modified Modified Blood Gas Total Hemoglobin 7.40 L 10.50 L 13.5-17.5 g/dL Blood Gas Set Respiration Rate 18.0 18.0 Blood Gas Modality Vent - ac Vent - ac FiO2 % 50.0 85.0 Blood Gas Tidal Volume 400.0 400.0 Blood Gas PEEP or CPAP 5.0 5.0 Blood Gas Critical Value Read Back Yes Yes Blood Gas Notified Whom Jonh whitt md Blood Gas Notified Time [id number] Blood Gas Notified By Epifanio whitt md White Blood Count 25.7 #H 4.4-10.8 10^3/uL Red Blood Count 3.16 L 4.5-5.90 10^6/uL Hemoglobin 9.2 #L 13.5-17.5 g/dL Hematocrit 29.3 #L 41.0-53.0 % Mean Corpuscular Volume 93.0 # 80.0-100.0 fL Mean Corpuscular Hemoglobin 29.2 28.0-32.0 pg Mean Corpuscular Hemoglobin Concent 31.4 L 32.0-36.0 g/dL Red Cell Distribution Width 16.5 H 11.8-14.3 % Platelet Count 78 L 140-450 10^3/uL Mean Platelet Volume 10.0 6.9-10.8 fL Neutrophils (%) (Auto) 83.6 H 37.0-80.0 % Lymphocytes (%) (Auto) 7.8 L 10.0-50.0 % Monocytes (%) (Auto) 7.9 0.0-12.0 % Eosinophils (%) (Auto) 0.1 0.0-7.0 % Basophils (%) (Auto) 0.6 0.0-2.0 % Neutrophils # (Auto) 21.5 H 1.6-8.6 10 ^3/uL Lymphocytes # (Auto) 2.0 0.4-5.4 10 ^3/uL Monocytes # (Auto) 2.0 H 0-1.3 10 ^3/uL Eosinophils # (Auto) 0 0-0.8 10 ^3/uL Basophils # (Auto) 0.2 0-0.2 10 ^3/uL Nucleated Red Blood Cells 0.5 % Prothrombin Time 23.0 H 9.3-11.8 sec Prothrombin Time INR 2.31 H 0.9-1.15 Activated Partial Thromboplast Time 69.9 H 24.5-34.5 SEC Sodium Level 148 #H 136-145 mmol/L Potassium Level 6.5 #*H 3.5-5.1 mmol/L Chloride Level 118 #H 98-107 mmol/L Carbon Dioxide Level 12 L 20-31 mmol/L Anion Gap 18 H 5-15 Blood Urea Nitrogen 21 9-23 mg/dL Creatinine 1.83 H 0.700-1.30 mg/dL Glomerular Filtration Rate Calc 40 >90 mL/min BUN/Creatinine Ratio 11.5 10.0-20.0 Serum Glucose 94 # 74-106 mg/dL Hemoglobin A1c 5.4 <5.7 % A1C Lactic Acid Level 11.8 *H 0.4-2.0 mmol/L Calcium Level 6.5 L 8.7-10.4 mg/dL Phosphorus Level 8.8 H 2.4-5.1 mg/dL Magnesium Level 2.2 1.6-2.6 mg/dL Total Bilirubin 0.8 0.2-1.0 mg/dL Aspartate Amino Transferase (AST) 1205 H 13-40 U/L Alanine Aminotransferase (ALT) 812 H 7-40 U/L Alkaline Phosphatase 102 46-116 U/L Ammonia 94 H 11-32 umol/L Total Protein 4.0 L 5.7-8.2 g/dL Albumin 2.1 L 3.2-4.8 g/dL Triglycerides Level 85 < 150 mg/dL Cholesterol Level 51 < 200 mg/dL LDL Cholesterol 26 < 100 mg/dL HDL Cholesterol 12 L 40-59 mg/dL Lipase 210 H 12-53 U/L Thyroid Stimulating Hormone (TSH) 1.17 0.55-4.78 uIU/mL Urine Color Yellow Yellow Urine Clarity Turbid H Clear Urine pH 6.0 5.0-9.0 Urine Specific [place] 1.034 1.001-1.035 Urine Protein 1+ H Negative Urine Ketones Negative Negative Urine Blood 2+ H Negative /uL Urine Nitrite Negative Negative Urine Bilirubin Negative Negative Urine Urobilinogen Normal Negative mg/dL Urine Leukocyte Esterase Negative Negative /uL Urine RBC 49 0 - 3 /hpf Urine Microscopic WBC 31 H 0-3 /HPF Urine Squamous Epithelial Cells Few <5 /hpf Urine Bacteria Few H None Seen /hpf Urine Hyaline Casts Mod 0 - 2 /lpf Urine Mucus Few None Seen Urine Glucose Normal Normal mg/dL Urine Opiates Screen Neg NEGATIVE Urine Fentanyl Screen Neg NEGATIVE Urine Barbiturates Screen Neg NEGATIVE Urine Phencyclidine Screen Neg NEGATIVE Urine Amphetamines Screen Neg NEGATIVE Urine Benzodiazepines Screen Pos NEGATIVE Urine Cocaine Screen Neg NEGATIVE Urine Cannabinoids Screen Neg NEGATIVE Test 03/11/25 00:30 03/10/25 22:14 03/10/25 20:14 Range/Units Hemoglobin 3.2 #*L 8.6 L 13.5-17.5 g/dL Hematocrit 10.6 #L 25.7 L 41.0-53.0 % Platelet Count 76 L 150 140-450 10^3/uL Reticulocyte Count (auto) 4.31 H 0.5-1.5 % Iron Level 61 L 65-175 ug/dL Total Iron Binding Capacity 172 L 250-425 ug/dL Percent Iron Saturation 35.5 20-55 % Ferritin 1342.2 H 22-322 ng/mL Lactate Dehydrogenase 321 H 120-246 U/L Lactic Acid Level 7.1 *H 5.4 *H 0.4-2.0 mmol/L White Blood Count 10.5 4.4-10.8 10^3/uL Red Blood Count 2.61 L 4.5-5.90 10^6/uL Mean Corpuscular Volume 98.3 80.0-100.0 fL Mean Corpuscular Hemoglobin 32.9 H 28.0-32.0 pg Mean Corpuscular Hemoglobin Concent 33.5 32.0-36.0 g/dL Red Cell Distribution Width 17.4 H 11.8-14.3 % Mean Platelet Volume 9.5 6.9-10.8 fL Neutrophils (%) (Auto) 61.9 37.0-80.0 % Lymphocytes (%) (Auto) 27.9 10.0-50.0 % Monocytes (%) (Auto) 7.0 0.0-12.0 % Eosinophils (%) (Auto) 2.3 0.0-7.0 % Basophils (%) (Auto) 0.9 0.0-2.0 % Neutrophils # (Auto) 6.5 1.6-8.6 10 ^3/uL Lymphocytes # (Auto) 2.9 0.4-5.4 10 ^3/uL Monocytes # (Auto) 0.7 0-1.3 10 ^3/uL Eosinophils # (Auto) 0.2 0-0.8 10 ^3/uL Basophils # (Auto) 0.1 0-0.2 10 ^3/uL Nucleated Red Blood Cells 0.2 % Prothrombin Time 12.9 H 9.3-11.8 sec Prothrombin Time INR 1.24 H 0.9-1.15 Activated Partial Thromboplast Time 30.9 24.5-34.5 SEC Sodium Level 142 136-145 mmol/L Potassium Level 3.7 3.5-5.1 mmol/L Chloride Level 108 H 98-107 mmol/L Carbon Dioxide Level 21 20-31 mmol/L Anion Gap 13 5-15 Blood Urea Nitrogen 24 H 9-23 mg/dL Creatinine 1.76 H 0.700-1.30 mg/dL Glomerular Filtration Rate Calc 42 >90 mL/min BUN/Creatinine Ratio 13.6 10.0-20.0 Serum Glucose 245 H 74-106 mg/dL Calcium Level 8.7 8.7-10.4 mg/dL Total Bilirubin 0.7 0.2-1.0 mg/dL Aspartate Amino Transferase (AST) 381 H 13-40 U/L Alanine Aminotransferase (ALT) 467 H 7-40 U/L Alkaline Phosphatase 178 H 46-116 U/L Total Protein 6.6 5.7-8.2 g/dL Albumin 2.8 L 3.2-4.8 g/dL Lipase 41 12-53 U/L Assessment IMP: 1) Hemodynamically mediated CEDRIC/VMN, possible ischemic ATN 2) hemorrhagic shock - acute intra-abdominal blood loss related to splenic hemorrhage 3) anion gap metabolic acidosis, lactic acidosis 4) hyperkalemia - multifactorial 5) acute hypoxemic respiratory failure REC: - continued support with vasopressors, volume expansion, IV alkali - serial basic chemistry panels, CBC - noted efforts to transfer to higher level of care - overall critical status due to significant comorbid conditions and current clinical state. - we will continue to follow closely along with you. Thank you for the co nsultation. Plan discussed with: Other SHAWNEE MOREIRA MD Mar 11, 2025 11:10
[2025-03-11 11:40] LABS: Alkaline Phosphatase 87 U/L (46-116); Anion Gap 24 (5-15); BUN/Creatinine Ratio 13.6 (10.0-20.0)
[2025-03-11 11:41] LABS: Bilirubin, Total 1.1 mg/dL (0.2-1.0)
[2025-03-11 11:46] LABS: Hematocrit 26.8 % (41.0-53.0); Hemoglobin 8.1 g/dL (13.5-17.5); Mean Corpuscular Hemoglobin 28.9 pg (28.0-32.0); Mean Corpuscular Volume 95.4 fL (80.0-100.0); Nucleated Red Blood Cells % 0.5 %
[2025-03-11 11:57] LABS: Blood Urea Nitrogen 30 mg/dL (9-23); Carbon Dioxide 16 mmol/L (20-31); Chloride 115 mmol/L (98-107); Glucose 161 mg/dL (74-106); Potassium 5.8 mmol/L (3.5-5.1); Sodium 155 mmol/L (136-145)
[2025-03-11 11:58] LABS: Alanine Aminotransferase 1198 U/L (7-40); Albumin 1.9 g/dL (3.2-4.8); Calcium 6.7 mg/dL (8.7-10.4); Total Protein 3.7 g/dL (5.7-8.2)
[2025-03-11] MEDS: phytonadione 10 MG in SODIUM CHL 0.9% 50 ML IV ONE (11:58)
[2025-03-11] MEDS: VANCOMYCIN 750MG KIT 100 ML IV ONE (12:36)
[2025-03-11] MEDS: ALBUMIN 25% 50 ML IV SCH (13:18)
--- NOTE | 2025-03-11 16:12 | DVHINCON2 ---
Date of service: Mar 11, 2025 Referring Physician Reason for Consultation Hemoperitoneum possibly from splenic hemorrhage History of Present Illness This 69-year-old male presented to the emergency room with complaints of abdominal pain and weakness patient had liver mass and for which she had a liver biopsy about three weeks ago and patient had history of cirrhosis of the liver patient also had abdominal pain and CT scan showed possible splenic subcapsular hematoma and some fluid in the for some hemoperitoneum possibly. And hence the reason for GI consult. Past Medical History Cirrhosis possible liver cancer Past Surgical History Liver biopsy Family History: Patient reports no known family medical history. Social History Denies smoking or drinking Allergies: Coded Allergies: NO KNOWN ALLERGIES (Unverified , 02/07/25) Home Meds Active Scripts Hydrocodone-Acetaminophen (Hydrocodone Bitartrate/AC 5-325 mg) 1 Tab Tab, 1 TAB PO Q4HPRN PRN, #30 TAB Prov:ALIZE OROZCO MD 02/16/25 Current Medications Current Medications Medications (Trade) Dose Ordered Sig/Alpa Route PRN Reason Start Time Stop Time Status Last Admin Norepinephrine Bitartrate 250 ml @ 3.75 mls/hr Q24H IV 03/10/25 23:45 03/11/25 14:28 Norepinephrine Bitartrate 250 ml @ 3.75 mls/hr Q24H IV 03/10/25 23:45 03/11/25 00:28 DC Midazolam HCl 50 ml @ 1 mls/hr Q24H IV 03/11/25 00:00 03/11/25 00:08 Octreotide Acetate 500 mcg/ Sodium Chloride 100 ml @ 10 mls/hr Q10H IV 03/11/25 00:30 03/11/25 09:35 Ondansetron HCl (Zofran) 4 mg Q4HP PRN IV NAUSEA / VOMITING 03/11/25 01:00 Morphine Sulfate 2 mg Q4HPRN PRN IV SEVERE PAIN (7-10 PAIN SCALE) 03/11/25 01:00 03/11/25 05:03 DC Pantoprazole Sodium 50 ml @ 10 mls/hr Q5H IV 03/11/25 04:15 03/11/25 11:57 Piperacillin Sod/ Tazobactam Sod 100 ml @ 25 mls/hr Q8HR IV 03/11/25 06:00 03/11/25 13:19 Sodium Chloride 1,000 ml @ 60 mls/hr [id number] IV 03/11/25 04:45 03/11/25 06:34 Vasopressin 40 units/Dextrose 200 ml @ 60 mls/hr Q3H20M IV 03/11/25 04:45 03/11/25 05:14 DC Vasopressin 20 units/Sodium Chloride 100 ml @ 9 mls/hr Q11H7M IV 03/11/25 05:00 03/11/25 05:13 Vancomycin HCl 0 ml @ 0 mls/hr UD IV 03/11/25 10:30 Albumin Human 50 ml @ 100 mls/hr Q8H IV 03/11/25 12:45 03/12/25 05:14 03/11/25 13:18 Review of Systems Unable to get detailed Vital Signs Vital Signs Date Time Temp Pulse Resp B/P (MAP) Pulse Ox O2 Delivery O2 Flow Rate FiO2 03/11/25 15:47 110 27 97/57 (70) 99 40 03/11/25 15:45 97.7 97.7 03/11/25 10:00 Mechanical Ventilator+ 03/10/25 19:40 2 Physical Exam Patient is intubated and getting ventilator support Vitals stable Lungs are clear Cardiovascular unremarkable Abdomen not distended but difficult to feel with doughy appearance Extremities no edema Labs/Diagnostic Data Labs Test 03/11/25 11:32 03/11/25 10:39 03/11/25 10:15 03/11/25 07:00 Range/Units White Blood Count 22.9 H 4.4-10.8 10^3/uL Red Blood Count 2.81 L 4.5-5.90 10^6/uL Hemoglobin 8.1 L 13.5-17.5 g/dL Hematocrit 26.8 L 41.0-53.0 % Mean Corpuscular Volume 95.4 80.0-100.0 fL Mean Corpuscular Hemoglobin 28.9 28.0-32.0 pg Mean Corpuscular Hemoglobin Concent 30.3 L 32.0-36.0 g/dL Red Cell Distribution Width 17.4 H 11.8-14.3 % Platelet Count 127 #L 140-450 10^3/uL Mean Platelet Volume 9.2 6.9-10.8 fL Neutrophils (%) (Auto) 84.1 H 37.0-80.0 % Lymphocytes (%) (Auto) 6.9 L 10.0-50.0 % Monocytes (%) (Auto) 8.5 0.0-12.0 % Eosinophils (%) (Auto) 0.2 0.0-7.0 % Basophils (%) (Auto) 0.3 0.0-2.0 % Neutrophils # (Auto) 19.2 H 1.6-8.6 10 ^3/uL Lymphocytes # (Auto) 1.6 0.4-5.4 10 ^3/uL Monocytes # (Auto) 2.0 H 0-1.3 10 ^3/uL Eosinophils # (Auto) 0.1 0-0.8 10 ^3/uL Basophils # (Auto) 0.1 0-0.2 10 ^3/uL Nucleated Red Blood Cells 0.5 % Potassium Level 5.5 H 3.5-5.1 mmol/L Sodium Level 155 #H 136-145 mmol/L Chloride Level 115 H 98-107 mmol/L Carbon Dioxide Level 16 L 20-31 mmol/L Anion Gap 24 H 5-15 Blood Urea Nitrogen 30 H 9-23 mg/dL Creatinine 2.20 H 0.700-1.30 mg/dL Glomerular Filtration Rate Calc 32 >90 mL/min BUN/Creatinine Ratio 13.6 10.0-20.0 Serum Glucose 161 H 74-106 mg/dL Lactic Acid Level 14.8 *H 0.4-2.0 mmol/L Calcium Level 6.7 L 8.7-10.4 mg/dL Total Bilirubin 1.1 H 0.2-1.0 mg/dL Aspartate Amino Transferase (AST) 1840 H 13-40 U/L Alanine Aminotransferase (ALT) 1198 H 7-40 U/L Alkaline Phosphatase 87 46-116 U/L Total Protein 3.7 L 5.7-8.2 g/dL Albumin 1.9 L 3.2-4.8 g/dL Blood Gas Specimen Type Arterial Blood Gas Sample Site Left radial Blood Gas Patient Temperature 37.0 Arterial Blood Date Drawn Arterial Blood pH 7.050 *L 7.350-7.450 Arterial Blood Partial Pressure CO2 59.4 H 35.0-48.0 mmHg Arterial Blood Partial Pressure O2 125.8 H 83.0-108.0 mmHg Arterial Blood HCO3 16.1 L 21.0-28.0 mmol/L Arterial Blood Oxygen Saturation 96.7 94.0-98.0 % Arterial Blood Base Excess -13.6 L -2.0-3.0 mmol/L Arterial Blood Oxyhemoglobin 95.4 94.0-98.0 % Arterial Blood Carboxyhemoglobin 0.2 L 0.5-1.5 % Arterial Blood Methemoglobin 1.1 0.0-1.5 % Johan Test Modified Blood Gas Total Hemoglobin 7.40 L 13.5-17.5 g/dL Blood Gas Set Respiration Rate 18.0 Blood Gas Modality Vent - ac FiO2 % 50.0 Blood Gas Tidal Volume 400.0 Blood Gas PEEP or CPAP 5.0 Blood Gas Critical Value Read Back Yes Blood Gas Notified Whom Jonh zendejas md Blood Gas Notified Time [id number] Blood Gas Notified By Epifanio bermudez rrt Prothrombin Time 23.0 H 9.3-11.8 sec Prothrombin Time INR 2.31 H 0.9-1.15 Activated Partial Thromboplast Time 69.9 H 24.5-34.5 SEC Fibrinogen 54 *L 177-375 mg/dL Hemoglobin A1c 5.4 <5.7 % A1C Phosphorus Level 8.8 H 2.4-5.1 mg/dL Magnesium Level 2.2 1.6-2.6 mg/dL Ammonia 94 H 11-32 umol/L Triglycerides Level 85 < 150 mg/dL Cholesterol Level 51 < 200 mg/dL LDL Cholesterol 26 < 100 mg/dL HDL Cholesterol 12 L 40-59 mg/dL Lipase 210 H 12-53 U/L Thyroid Stimulating Hormone (TSH) 1.17 0.55-4.78 uIU/mL Test 03/11/25 03:14 03/11/25 00:30 Range/Units Urine Color Yellow Yellow Urine Clarity Turbid H Clear Urine pH 6.0 5.0-9.0 Urine Specific [place] 1.034 1.001-1.035 Urine Protein 1+ H Negative Urine Ketones Negative Negative Urine Blood 2+ H Negative /uL Urine Nitrite Negative Negative Urine Bilirubin Negative Negative Urine Urobilinogen Normal Negative mg/dL Urine Leukocyte Esterase Negative Negative /uL Urine RBC 49 0 - 3 /hpf Urine Microscopic WBC 31 H 0-3 /HPF Urine Squamous Epithelial Cells Few <5 /hpf Urine Bacteria Few H None Seen /hpf Urine Hyaline Casts Mod 0 - 2 /lpf Urine Mucus Few None Seen Urine Glucose Normal Normal mg/dL Urine Opiates Screen Neg NEGATIVE Urine Fentanyl Screen Neg NEGATIVE Urine Barbiturates Screen Neg NEGATIVE Urine Phencyclidine Screen Neg NEGATIVE Urine Amphetamines Screen Neg NEGATIVE Urine Benzodiazepines Screen Pos NEGATIVE Urine Cocaine Screen Neg NEGATIVE Urine Cannabinoids Screen Neg NEGATIVE Reticulocyte Count (auto) 4.31 H 0.5-1.5 % Iron Level 61 L 65-175 ug/dL Total Iron Binding Capacity 172 L 250-425 ug/dL Percent Iron Saturation 35.5 20-55 % Ferritin 1342.2 H 22-322 ng/mL Lactate Dehydrogenase 321 H 120-246 U/L Microbiology Date/Time Source Procedure Growth Status 03/11/25 03:14 Nose MRSA Screen - Final Complete Assessment This 69-year-old male with cirrhosis and possible hepatic cancer had the liver biopsy three weeks ago now has got splenic hematoma with the abdominal pain hemoglobin is 8.1 white count is high patient is intubated and is in the ICU vitals are stable Seen by surgeon we will recommended higher level of care Plan/Recommendation His overall prognosis is guarded patient apparently has been acceptable [place] we will await the transferred [place] we will recommend supportive care in the meantime Plan discussed with: Patient JADE SMITH MD Mar 11, 2025 16:12
--- NOTE | 2025-03-11 16:32 | DVHSR ---
APPROVED REPORT EXAM: LIMITED Two-dimensional and M-mode echocardiogram with Doppler and color Doppler. Blood Pressure: 79/47 mmHg INDICATION Dizziness and Vertigo GI Bleed RISK FACTORS Height: 5', Weight: 102 DIMENSIONS LVDd3.5 (3.8-5.7cm)LA (2D)3.3 (1.9-4.0cm)Aortic Root3.6 (2.0-3.7cm) LVDs2.2 (2.5-4.0cm)LA (MM) (1.9-4.0cm)Aortic Cusp Exc0.8 (1.5-2.0cm) EF (%) 65.0 (55-70%)Rt. Atrium3.5 (1.9-4.0cm)Asc. Aorta cm IVSd1.3 (0.7-1.1cm)RV (D) (1.8-2.4cm) PWd0.8 (0.7-1.1cm) Mitral Valve MitralMitral Stenosis E wave0.90m/sMV Mean GR.mmHg A wave1.20m/sMV Peak GR.mmHg E/A ratio0.82D MVAcm2 Aortic Valve Aortic ValveAortic Stenosis V11.00m/Jas Mean GR.26mmHg V23.60m/Jas Peak GR.52mmHg LVOT Diameter2.1 (1.8-2.4cm)Doppler AVA0.96cm2 2D AVA0.69cm2 Pulmonic Valve V21.30m/s Conclusion Technically good study. Sinus tachycardia. Concentric LVH with left atrial enlargement. Aortic stenosis present with diminished excursion of the leaflets. Calcification is primarily at the right and left coronary cusps. The mitral and tricuspid appear to be structurally normal. Left ventricular systolic performance is hyperdynamic. EF is about 65-70% with normal RV function. Doppler reveals a significant gradient across the aortic valve. Peak gradient of 56 mmHg with a mean gradient of 26 mm mmHg. This is consistent with a valve area of 0.96 cm2.. Planimetry of the aorti c valve area is at 0.68 cm2. Both numbers are consistent with severe aortic stenosis. Small pericardial effusion not hemodynamically significant. No intracardiac masses thrombi or vegetations.
--- NOTE | 2025-03-11 16:42 | DVHDSRES ---
Discharge Summary Date of Admission Resident Creating Document: SARAHY STARR RESIDENT Mar 11, 2025 at 01:00 Date of Discharge: Mar 11, 2025 Labs/Diagnostic Data: Laboratory Results Test 03/11/25 11:32 03/11/25 10:39 03/11/25 10:15 03/11/25 07:00 White Blood Count 22.9 10^3/uL (4.4-10.8) Red Blood Count 2.81 10^6/uL (4.5-5.90) Hemoglobin 8.1 g/dL (13.5-17.5) Hematocrit 26.8 % (41.0-53.0) Mean Corpuscular Volume 95.4 fL (80.0-100.0) Mean Corpuscular Hemoglobin 28.9 pg (28.0-32.0) Mean Corpuscular Hemoglobin Concent 30.3 g/dL (32.0-36.0) Red Cell Distribution Width 17.4 % (11.8-14.3) Platelet Count 127 10^3/uL (140-450) Mean Platelet Volume 9.2 fL (6.9-10.8) Neutrophils (%) (Auto) 84.1 % (37.0-80.0) Lymphocytes (%) (Auto) 6.9 % (10.0-50.0) Monocytes (%) (Auto) 8.5 % (0.0-12.0) Eosinophils (%) (Auto) 0.2 % (0.0-7.0) Basophils (%) (Auto) 0.3 % (0.0-2.0) Neutrophils # (Auto) 19.2 10 ^3/uL (1.6-8.6) Lymphocytes # (Auto) 1.6 10 ^3/uL (0.4-5.4) Monocytes # (Auto) 2.0 10 ^3/uL (0-1.3) Eosinophils # (Auto) 0.1 10 ^3/uL (0-0.8) Basophils # (Auto) 0.1 10 ^3/uL (0-0.2) Nucleated Red Blood Cells 0.5 % Potassium Level 5.5 mmol/L (3.5-5.1) Sodium Level 155 mmol/L (136-145) Chloride Level 115 mmol/L (98-107) Carbon Dioxide Level 16 mmol/L (20-31) Anion Gap 24 (5-15) Blood Urea Nitrogen 30 mg/dL (9-23) Creatinine 2.20 mg/dL (0.700-1.30) Glomerular Filtration Rate Calc 32 mL/min (>90) BUN/Creatinine Ratio 13.6 (10.0-20.0) Serum Glucose 161 mg/dL (74-106) Lactic Acid Level 14.8 mmol/L (0.4-2.0) Calcium Level 6.7 mg/dL (8.7-10.4) Total Bilirubin 1.1 mg/dL (0.2-1.0) Aspartate Amino Transferase (AST) 1840 U/L (13-40) Alanine Aminotransferase (ALT) 1198 U/L (7-40) Alkaline Phosphatase 87 U/L (46-116) Total Protein 3.7 g/dL (5.7-8.2) Albumin 1.9 g/dL (3.2-4.8) Blood Gas Specimen Type Arterial Blood Gas Sample Site Left radial Blood Gas Patient Temperature 37.0 Arterial Blood Date Drawn [id number] Arterial Blood pH 7.050 (7.350-7.450) Arterial Blood Partial Pressure CO2 59.4 mmHg (35.0-48.0) Arterial Blood Partial Pressure O2 125.8 mmHg (83.0-108.0) Arterial Blood HCO3 16.1 mmol/L (21.0-28.0) Arterial Blood Oxygen Saturation 96.7 % (94.0-98.0) Arterial Blood Base Excess -13.6 mmol/L (-2.0-3.0) Arterial Blood Oxyhemoglobin 95.4 % (94.0-98.0) Arterial Blood Carboxyhemoglobin 0.2 % (0.5-1.5) Arterial Blood Methemoglobin 1.1 % (0.0-1.5) Johan Test Modified Blood Gas Total Hemoglobin 7.40 g/dL (13.5-17.5) Blood Gas Set Respiration Rate 18.0 Blood Gas Modality Vent - ac FiO2 % 50.0 Blood Gas Tidal Volume 400.0 Blood Gas PEEP or CPAP 5.0 Blood Gas Critical Value Read Back Yes Blood Gas Notified Whom Jonh zendejas md Blood Gas Notified Time [id number] Blood Gas Notified By Epifanio bermudez rrt Prothrombin Time 23.0 sec (9.3-11.8) Prothrombin Time INR 2.31 (0.9-1.15) Activated Partial Thromboplast Time 69.9 SEC (24.5-34.5) Fibrinogen 54 mg/dL (177-375) Hemoglobin A1c 5.4 % A1C (<5.7) Phosphorus Level 8.8 mg/dL (2.4-5.1) Magnesium Level 2.2 mg/dL (1.6-2.6) Ammonia 94 umol/L (11-32) Triglycerides Level 85 mg/dL (< 150) Cholesterol Level 51 mg/dL (< 200) LDL Cholesterol 26 mg/dL (< 100) HDL Cholesterol 12 mg/dL (40-59) Lipase 210 U/L (12-53) Thyroid Stimulating Hormone (TSH) 1.17 uIU/mL (0.55-4.78) Test 03/11/25 03:14 03/11/25 00:30 Urine Color Yellow (Yellow) Urine Clarity Turbid (Clear) Urine pH 6.0 (5.0-9.0) Urine Specific [place] 1.034 (1.001-1.035) Urine Protein 1+ (Negative) Urine Ketones Negative (Negative) Urine Blood 2+ /uL (Negative) Urine Nitrite Negative (Negative) Urine Bilirubin Negative (Negative) Urine Urobilinogen Normal mg/dL (Negative) Urine Leukocyte Esterase Negative /uL (Negative) Urine RBC 49 /hpf (0 - 3) Urine Microscopic WBC 31 /HPF (0-3) Urine Squamous Epithelial Cells Few /hpf (<5) Urine Bacteria Few /hpf (None Seen) Urine Hyaline Casts Mod /lpf (0 - 2) Urine Mucus Few (None Seen) Urine Glucose Normal mg/dL (Normal) Urine Opiates Screen Neg (NEGATIVE) Urine Fentanyl Screen Neg (NEGATIVE) Urine Barbiturates Screen Neg (NEGATIVE) Urine Phencyclidine Screen Neg (NEGATIVE) Urine Amphetamines Screen Neg (NEGATIVE) Urine Benzodiazepines Screen Pos (NEGATIVE) Urine Cocaine Screen Neg (NEGATIVE) Urine Cannabinoids Screen Neg (NEGATIVE) Reticulocyte Count (auto) 4.31 % (0.5-1.5) Iron Level 61 ug/dL (65-175) Total Iron Binding Capacity 172 ug/dL (250-425) Percent Iron Saturation 35.5 % (20-55) Ferritin 1342.2 ng/mL (22-322) Lactate Dehydrogenase 321 U/L (120-246) Other Laboratory Tests 03/11/25 11:32 03/11/25 10:39 Brief Hx & Hospital Course: HISTORY OF PRESENT ILLNESS: Varghese Lewis is a 69-year-old male patient who presents to the ED with chief complaint of abdominal pain and generalized weakness. Per EMR notes patient reports completing liver biopsy approximately three weeks ago due to suspected hepatocellular carcinoma, planning on seeing liver specialist once biopsy was reported. Patient started with symptoms of proximally two days before his admission, prompting his visit to the ER. When evaluated the patient in the ED, he presented altered mentation, diaphoresis, severe hypotension not refractory to IV fluids, completed abdomen and pelvis CT which showed hemoperitoneum. Patient required emergent endotracheal intubation in central line placement, 3 units of PRBCs, one of platelets and one of fresh frozen plasma. On my assessment could not obtain review of systems, obtained all information from EMR and son who is at bedside. Past medical history: Hypertension, dyslipidemia, normocytic anemia, hepatic cancer (per EMR hepatocellular carcinoma) status post biopsy three weeks ago, alcoholic/hepatitis-B liver cirrhosis with thrombocytopenia. Social history: Ex alcohol and tobacco abuse quit two years ago. HOSPITAL COURSE: Patient was admitted on the line of hemorrhagic shock due to splenic bleeding, possible septic shock due to UTI. Due to altered mental status, the patient was intubated and put on mechanical ventilation. Due to severe anemia the patient was given 3 pt of RBC, 3 pt of FFP and platelets. Patient put on vasopressors (Levophed and vasopressin) IV fluid, empiric antibiotic (vancomycin and Zosyn), and due to possible hepatorenal syndrome, the patient was given octreotide, IV protonix, IV albumin. Surgery was consulted, due to complicated case, the patient was required to be transferred to higher level of care. Discussed the patient with [place] ICU doctor/surgeon and transfer center, patient accepted at [facility]. FINAL DIAGNOSIS: Acute metabolic encephalopathy, likely due to sepsis/hypovolemic shock Acute hypoxic respiratory failure, likely due to above Hypovolemic shock due to bleeding Possible septic shock, due to sepsis Complicated UTI Hemoperitoneum secondary to splenic bleeding Liver cirrhosis secondary hepatitis-B/ethanol Probable hepatocellular carcinoma Possible hepatorenal syndrome Questionable GI bleed Severe anemia status post multiple blood product transfusion Precipitous hemoglobin drop Coagulopathy Transaminitis Cholelithiasis Metabolic acidosis with increased anion gap Hyperlacticacidemia CEDRIC hemodynamically mediated (VMN) Hyperkalemia Hypertension Dyslipidemia History of polysubstance abuse Ruled out COPD exacerbation Condition at Discharge: Good Final Diagnosis/Problems List ACtive splenic bleeding leading to hemoperitoneum Discharge Disposition: Acute Care Facility Discharge Instruct/Medications Diet: See Comment Diet comment: NPO Activity: Bed rest Medications: Per transfer paper Scheduled PRN Hydrocodone-Acetaminophen (Hydrocodone Bitartrate/AC 5-325 mg), 1 TAB PO Q4HPRN PRN Discharge Statement: "Patient was advised to return to the ER or call 911 if any headaches, dizziness, shortness of breath, chest pain, abdominal pain, bleeding, fevers, or worsening of medical condition. Patient was counseled about treatment plan, medications, possible side effects, patientverbalized understanding. All questions were answered to the best of my ability. This discharge took greater then 30 minutes in planning, reviewing documentation, counseling the patient, and discussing with other team members." ASSESSMENT ASSESSMENT Assessment ACtive splenic bleeding leading to hemoperitoneum [facility] Mar 11, 2025 16:41
[2025-03-11] MEDS ORDERED: ROCURONIUM 10MG/ML 10ML VIAL IV ONE (23:50)
--- NOTE | 2025-03-12 10:29 | ECG ---
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
[2025-03-13 11:27] LABS: Hepatitis C Antibody Negative (Negative)
[2025-03-13 13:50] LABS: Hepatitis B Surface Antigen Positive (Negative)
== END 2025-03-11 20:40 | disposition short-term general hospital (02) | DRG 720 ==
LOC: EDBD 19:21 → EDUNIT# 19:21 → ER 19:21 → OVERFLOW 03-11 01:00 → ICU WEST 03-11 02:59
PROVIDERS: ADMIT Student in an Organized Health Care Education/Training Program; ATTEND Student in an Organized Health Care Education/Training Program
PROC: 0BH17EZ Insertion of Endotracheal Airway into Trachea, Via Natural or Artificial Opening (ICD-10-PCS; principal; 2025-03-11)
PROC: 5A1935Z Respiratory Ventilation, Less than 24 Consecutive Hours (ICD-10-PCS; 2025-03-11)
PROC: 02HV33Z Insertion of Infusion Device into Superior Vena Cava, Percutaneous Approach (ICD-10-PCS; 2025-03-11)
PROC: B548ZZA Ultrasonography of Superior Vena Cava, Guidance (ICD-10-PCS; 2025-03-11)
PROC: 30233K1 Transfusion of Nonautologous Frozen Plasma into Peripheral Vein, Percutaneous Approach (ICD-10-PCS; 2025-03-11)
PROC: 30233N1 Transfusion of Nonautologous Red Blood Cells into Peripheral Vein, Percutaneous Approach (ICD-10-PCS; 2025-03-11)
PROC: 30233R1 Transfusion of Nonautologous Platelets into Peripheral Vein, Percutaneous Approach (ICD-10-PCS; 2025-03-11)
PROC: 30233M1 Transfusion of Nonautologous Plasma Cryoprecipitate into Peripheral Vein, Percutaneous Approach (ICD-10-PCS; 2025-03-11)
DX: A41.9 Sepsis, unspecified organism (principal); R65.21 Severe sepsis with septic shock; K66.1 Hemoperitoneum; N17.0 Acute kidney failure with tubular necrosis; J96.01 Acute respiratory failure with hypoxia; G93.41 Metabolic encephalopathy; R57.1 Hypovolemic shock; R16.0 Hepatomegaly, not elsewhere classified; E87.5 Hyperkalemia; K74.60 Unspecified cirrhosis of liver; K80.20 Calculus of gallbladder without cholecystitis without obstruction; E78.5 Hyperlipidemia, unspecified; I10 Essential (primary) hypertension; J44.9 Chronic obstructive pulmonary disease, unspecified; N39.0 Urinary tract infection, site not specified; D64.9 Anemia, unspecified; D68.9 Coagulation defect, unspecified; E87.20 Acidosis, unspecified; Z85.05 Personal history of malignant neoplasm of liver; Z79.899 Other long term (current) drug therapy
CPT/HCPCS: 31500; 36415; 36430; 36556; 36600; 71045; 74176; 74177; 80053; 80061; 80074; 80307; 81001; 82140; 82306; 82607; 82728; 82805; 83036; 83540; 83550; 83605; 83615; 83690; 83735; 84100; 84132; 84443; 85014; 85018; 85025; 85045; 85049; 85384; 85610; 85730; 86850; 86900; 86901; 86920; 86922; 87040; 87070; 87077; 87081; 87086; 87186; 87205; 93005; 93306; 94002; 94003; 96361; 96365; 99152; G0378; J1815; J2405; J2470; J2543; J3430; J3490; P9047